=== PATIENT | male | born 1975 | race Caucasian/White ===

== ENCOUNTER 2016-09-27 01:52 | Emergency (ER) | payer MEDICARE ==
--- NOTE | 2016-09-27 02:13 | ERPHSYRPT ---
- History of Present Illness Time Seen by Provider: 09/27/16 02:00 Source: patient Exam Limitations: no limitations Patient Subjective Stated Complaint: PT STATES HE IS HAVING WEAKNESS AND PAIN IN HIS LEGS AND STATES HE THINKS HES DEHYDRATED. DENIES BEING SICK RECENTLY, DENIES FEVER. Triage Nursing Assessment: PT ALERT AND ORIENTED, ANSWERS QUESTIONS APPROP. PT AMBULATORY WITH STEADY GAIIT NOTED. RESPIRATIONS NONLABORED WITH LUNGS CTA. SKIN NORMAL FOR RACE, DRY, WARM. MULT SCABS TO LOWER LEGS. Physician History: Pt. has H/O IDDM with neuropathy. He has multiple non-infected abrasions of his gordy [place] [facility] He reports vomiting x 2 today. Timing/Duration: day(s) (2) Severity: moderate Modifying Factors: Improves With: movement Associated Symptoms: vomiting, malaise, weakness, other (neuropathy of bilLE) Allergies/Adverse Reactions: Shellfish *RETIRED-09/25/12 [Shellfish] Allergy (Severe, Verified 09/27/16 02:05 ) Hives 12/20/15 patient states he IS allergic to shellfish diphenhydramine HCl [From Benadryl] Allergy (Unknown, Verified 09/27/16 02:05) influenza virus vaccine, specific [Influenza Virus Vacc,Specific] Allergy ( Unknown, Verified 09/27/16 02:05) shellfish derived Allergy (Verified 09/27/16 02:05) Home Medications: Duloxetine HCl 30 mg [Cymbalta 30 MG Capsule] 60 mg PO 10/30/12 [ History] Insulin Detemir [Levemir] 10 unit SQ 02/20/14 [History] Insulin Aspart [NovoLOG Insulin] 10 unit SQ 11/05/14 [History] Omeprazole 20 MG [Prilosec 20 mg] 20 mg PO DAILY 12/20/15 [History] Dronabinol [Marinol] 5 mg PO BID 09/27/16 [History] Hx Tetanus, Diphtheria Vaccination/Date Given: Yes (unknown) Hx Influenza Vaccination/Date Given: No Hx Pneumococcal Vaccination/Date Given: No Immunizations Up to Date: Yes - Review of Systems Constitutional: Malaise, Weakness Eyes: No Symptoms Ears, Nose, & Throat: No Symptoms Respiratory: No Symptoms Cardiac: No Symptoms Abdominal/Gastrointestinal: Vomiting Genitourinary Symptoms: No Symptoms Musculoskeletal: Arthralgias Skin: Skin Lesions Psychological: No Symptoms Endocrine: No Symptoms Hematologic/Lymphatic: No Symptoms - Past Medical History Pertinent Past Medical History: Yes Neurological History: Peripheral Neuropathy, Seizures ENT History: No Pertinent History Cardiac History: Other Respiratory History: No Pertinent History Endocrine Medical History: Diabetes Type I Musculoskeletal History: No Pertinent History GI Medical History: Gallbladder Disease History: No Pertinent History Psycho-Social History: Anxiety, Depression Male Reproductive Disorders: No Pertinent History Other Medical History: tachycardia - Past Surgical History Past Surgical History: Yes Neuro Surgical History: No Pertinent History Cardiac: No Pertinent History Respiratory: No Pertinent History Gastrointestinal: Cholecystectomy, Other Genitourinary: No Pertinent History Musculoskeletal: Orthopedic Surgery Male Surgical History: No Pertinent History Other Surgical History: Left Knee surgery. right hand surgery. port placement - Social History Smoking Status: Never smoker How long have you smoked: 15 Exposure to second hand smoke: No Alcohol Use: Socially Drug Use: none Patient Lives Alone: No Significant Family History: diabetes - Nursing Vital Signs Nursing Vital Signs: Initial Vital Signs Temperature 98.0 F Temperature Source Oral Pulse Rate 89 Respiratory Rate 18 Blood Pressure [Right Arm] 95/76 Pain Intensity 8 - Physical Exam General Appearance: moderate distress Eye Exam: eyes nml inspection Ears, Nose, Throat Exam: normal ENT inspection, pharynx normal Neck Exam: normal inspection, non-tender, supple, full range of motion Respiratory Exam: normal breath sounds Cardiovascular Exam: regular rate/rhythm, normal heart sounds, normal peripheral pulses Gastrointestinal/Abdomen Exam: soft, normal bowel sounds Back Exam: normal inspection, normal range of motion Extremity Exam: normal range of motion, pelvis stable, other (scattered abrasions of gordy shins healing), No pedal edema Neurologic Exam: alert, oriented x 3, cooperative, normal mood/affect Skin Exam: normal color, warm, dry, abrasion SpO2 Interpretation: normal SpO2: 98 Oxygen Delivery: Room Air - Course Nursing assessment & vital signs reviewed: Yes EKG Interpreted by Me: RATE, Sinus Rhythm (at 92), NORMAL AXIS, Other (In comparison to ECG of 7, no morphology change, but rate has slowed.) Ordered Tests: Active Orders 24 hr Category Date Time Status Accucheck STAT Care 09/27/16 02:21 Active EKG-ER Only STAT Care 09/27/16 02:21 Active IV Insertion STAT Care 09/27/16 02:21 Active CHEST 1 VIEW (PORTABLE) Stat Exams 09/27/16 02:21 Taken ARTERIAL BLOOD GASES Urgent Lab 09/27/16 02:35 Completed CBC W DIFF Stat Lab 09/27/16 02:57 Completed CMP Stat Lab 09/27/16 02:57 Completed MAGNESIUM Stat Lab 09/27/16 02:57 Completed Medication Summary Discontinued Medications Generic Name Dose Route Start Last Admin Trade Name Caridad PRN Reason Stop Dose Admin Sodium Chloride 1,000 mls @ 999 mls/hr 09/27/16 02:21 09/27/16 02:55 Sodium Chloride 0.9% 1000 Ml IV 09/27/16 03:21 999 mls/hr .Q1H1M STA Administration Sodium Chloride Confirm 09/27/16 02:54 Sodium Chloride 0.9% 1000 Ml Administered 09/27/16 02:55 Dose 1,000 mls @ ud .ROUTE .STK-MED ONE Ketorolac Tromethamine 30 mg 09/27/16 02:25 09/27/16 02:55 Toradol 30 Mg Injection IV 09/27/16 02:26 30 mg STAT ONE Administration Ketorolac Tromethamine Confirm 09/27/16 02:54 Toradol 30 Mg Injection Administered 09/27/16 02:55 Dose 30 mg .ROUTE .STK-MED ONE Ondansetron HCl 4 mg 09/27/16 02:21 09/27/16 02:57 Zofran 4 Mg/2 Ml Vial IV 09/27/16 02:22 4 mg STAT ONE Administration Ondansetron HCl Confirm 09/27/16 02:54 Zofran 4 Mg/2 Ml Vial Administered 09/27/16 02:55 Dose 4 mg .ROUTE .STK-MED ONE Lab/Rad Data: Laboratory Result Diagrams 09/27/16 02:57 09/27/16 02:57 Laboratory Results 09/27/16 09/27/16 09/27/16 Range/Units 02:57 02:57 02:35 WBC 9.4 (4.0-10.5) K/mm3 RBC 3.16 L (4.1-5.6) M/mm3 Hgb 9.8 L (12.5-18.0) gm/dl Hct 29.4 L (42-50) % MCV 93.0 (78-100) fl MCH 31.0 (26-32) pg MCHC 33.3 (32-36) g/dl RDW 13.3 (11.5-14.0) % Plt Count 272 (150-450) K/mm3 MPV 10.1 H (6-9.5) fl Gran % 47.5 (36.0-66.0) % Lymphocytes % 39.3 (24.0-44.0) % Monocytes % 7.2 (0.0-12.0) % Eosinophils % 5.0 (0.00-5.0) % Basophils % 1.0 (0.0-0.4) % Basophils # 0.09 (0-0.4) Puncture Site LEFT BRACHIAL pCO2 42 (35-45) mmHg pO2 78 (75-100) mmHg Base Excess 1.0 (-2.0-2.0) O2 Saturation 95.8 (94-100) g/dF ABG pH 7.40 (7.35-7.45) ABG HCO3 26.0 (22-28) ABG O2 Sat (Measured) 97.6 (95-100) % Uvaldo Test NOT APPLICABLE A-a Gradient 19 a/A Ratio 0.80 Hemoglobin 9.6 Carboxyhemoglobin 1.0 (0.0-6.9) % THgb Methemoglobin 0.8 L (1.4-1.5) % Potassium 4.4 4.3 (3.5-5.1) Temperature 37.0 C POC O2 Flow Rate 21 % Sodium 138 (136-145) mEq/L Chloride 104 (98-107) mEq/L Carbon Dioxide 26.0 (21-32) mEq/L Anion Gap 12.8 (5-15) MEQ/L BUN 32 H (9-20) mg/dL Creatinine 2.29 H (0.55-1.30) mg/dl Estimated GFR 33 ML/MIN Glucose 229 H (70-110) MG/DL Calcium 8.2 L (8.5-10.1) mg/dL Magnesium 1.9 (1.8-2.4) mg/dL Total Bilirubin 0.2 (0.2-1.0) mg/dL AST 24 (15-37) U/L ALT 16 (12-78) U/L Alkaline Phosphatase 69 (46-116) U/L Serum Total Protein 5.6 L (6.4-8.2) gm/dL Albumin 2.6 L (3.4-5.0) g/dL - Progress Progress: pain not gone completely Will see patient in: other (PCP 1-2 days) Counseled pt/family regarding: lab results, diagnosis, need for follow-up - Departure Time of Disposition: 03:30 Departure Disposition: Home Clinical Impression: Hyperglycemia due to type 1 diabetes mellitus, IDDM (insulin dependent diabetes mellitus) Diabetic neuropathy Qualifiers: Diabetes mellitus type: type 1 Diabetes mellitus complication detail: diabetic polyneuropathy Qualified Code(s): E10.42 - Type 1 diabetes mellitus with diabetic polyneuropathy Condition: Stable Critical Care Time: Yes Critical Care Time(excluding separately billable procedures): 75-104 minutes
[2016-09-27] MEDS ORDERED: Zofran 4 MG/2 ML VIAL IV ONE (02:21)
[2016-09-27] MEDS ORDERED: Sodium Chloride 0.9% 1000 ML 1,000 ML IV STA (02:21)
[2016-09-27] MEDS ORDERED: TORAdol 30 mg Injection IV ONE (02:25)
[2016-09-27 02:41] LABS: A-aADO2 19; ARTERIAL BLD GAS O2 SATURATION 97.6 % (95-100); ARTERIAL BLOOD GAS FIO2 21 %; ARTERIAL BLOOD GAS PO2 78 mmHg (75-100)
[2016-09-27] MEDS ORDERED: Sodium Chloride 0.9% 1000 ML 1,000 ML ONE (02:54)
[2016-09-27] MEDS ORDERED: TORAdol 30 mg Injection ONE (02:54)
[2016-09-27] MEDS ORDERED: Zofran 4 MG/2 ML VIAL ONE (02:54)
[2016-09-27 03:01] LABS: Granulocytes % 47.5 % (36.0-66.0); Lymphocytes % 39.3 % (24.0-44.0); Mean Platelet Volume 10.1 fl (6-9.5); Monocytes % 7.2 % (0.0-12.0); Platelet Count 272 K/mm3 (150-450); Red Blood Count 3.16 M/mm3 (4.1-5.6); Red Cell Distribution Width 13.3 % (11.5-14.0); White Blood Count 9.4 K/mm3 (4.0-10.5)
[2016-09-27 03:23] LABS: ALBUMIN 2.6 g/dL (3.4-5.0); ANION GAP 12.8 MEQ/L (5-15); BILIRUBIN,TOTAL 0.2 mg/dL (0.2-1.0); MAGNESIUM 1.9 mg/dL (1.8-2.4); Potassium 4.4 mEq/L (3.5-5.1); Total Protein 5.6 gm/dL (6.4-8.2)
[2016-09-27 05:04] VITALS: BP 151/79; PULSE 94; O2SAT 98
--- NOTE | 2016-09-27 09:38 | XRAY ---
Indication: Vomiting and dehydration. Comparison: December 20, 2015. Portable chest again demonstrates normal heart, lungs, and bony thorax with a left-sided Port-A-Cath.
== END 2016-09-27 04:55 | disposition home or self-care (01) ==
LOC: ED 01:52
DX: E10.42 Type 1 diabetes mellitus with diabetic polyneuropathy (principal); E10.65 Type 1 diabetes mellitus with hyperglycemia
CPT/HCPCS: 36000; 36415; 36600; 71010; 80053; 82375; 82803; 82962; 83735; 85025; 93005; 96374; 96375; 99284; J1642; J1885; J2405

== ENCOUNTER 2016-10-29 01:13 | Emergency (ER) | payer MEDICARE ==
--- NOTE | 2016-10-29 01:43 | ERPHSYRPT ---
- History of Present Illness Time Seen by Provider: 10/29/16 01:20 Source: patient Exam Limitations: no limitations Patient Subjective Stated Complaint: states that he has had trouble with swelling and increased neuropathic pain in the lower legs for 2 days - states that the pain is so bad that he wants to cut his legs off Triage Nursing Assessment: ambulatory to treatment area - shuffling gait - moves all extremities with mild but equal weakness. alert/oriented - grimmacing affect. skin sallow/warm/dry - no rash/injury - ankle edema +1. resps non-labored - shallow Physician History: FOR THE PAST 2 DAYS PT HAS HAD PAIN AND SWELLING IN HIS LEGS WITH DIAPHORESIS AND CHILLS. PT DENIES CHEST PAIN, SHORTNESS OF AIR, FEVER, VOMITING. Allergies/Adverse Reactions: Shellfish *RETIRED-09/25/12 [Shellfish] Allergy (Severe, Verified 09/27/16 02:05 ) Hives 12/20/15 patient states he IS allergic to shellfish diphenhydramine HCl [From Benadryl] Allergy (Unknown, Verified 09/27/16 02:05) influenza virus vaccine, specific [Influenza Virus Vacc,Specific] Allergy ( Unknown, Verified 09/27/16 02:05) ketorolac [From Toradol] Allergy (Verified 10/29/16 01:18) shellfish derived Allergy (Verified 09/27/16 02:05) Home Medications: Duloxetine HCl 30 mg [Cymbalta 30 MG Capsule] 60 mg PO HS 10/30/12 [ History] Insulin Detemir [Levemir] 10 unit SQ 02/20/14 [History] Insulin Aspart [NovoLOG Insulin] 10 unit SQ 11/05/14 [History] Omeprazole 20 MG [Prilosec 20 mg] 20 mg PO DAILY 12/20/15 [History] Dronabinol [Marinol] 5 mg PO BID 09/27/16 [History] Hx Tetanus, Diphtheria Vaccination/Date Given: Yes Hx Influenza Vaccination/Date Given: No Hx Pneumococcal Vaccination/Date Given: No Immunizations Up to Date: Yes - Review of Systems Constitutional: Chills, No Fever Respiratory: No Dyspnea Cardiac: No Chest Pain Abdominal/Gastrointestinal: No Abdominal Pain, No Nausea, No Vomiting Musculoskeletal: Other (LEG SWELLING AND PAIN) Endocrine: Excessive Sweating All Other Systems: Reviewed and Negative - Past Medical History Pertinent Past Medical History: Yes Neurological History: Peripheral Neuropathy, Seizures ENT History: No Pertinent History Cardiac History: Other Respiratory History: No Pertinent History Endocrine Medical History: Diabetes Type I Musculoskeletal History: No Pertinent History GI Medical History: Gallbladder Disease History: No Pertinent History Psycho-Social History: Anxiety, Depression Male Reproductive Disorders: No Pertinent History Other Medical History: tachycardia - Past Surgical History Past Surgical History: Yes Neuro Surgical History: No Pertinent History Cardiac: No Pertinent History Respiratory: No Pertinent History Gastrointestinal: Cholecystectomy, Other Genitourinary: No Pertinent History Musculoskeletal: Orthopedic Surgery Male Surgical History: No Pertinent History Other Surgical History: Left Knee surgery. right hand surgery. port placement - Social History Smoking Status: Never smoker How long have you smoked: 15 Exposure to second hand smoke: No Alcohol Use: Socially Drug Use: none Patient Lives Alone: No Significant Family History: diabetes - Nursing Vital Signs Nursing Vital Signs: Initial Vital Signs Temperature 98.5 F Temperature Source Oral Pulse Rate 88 Respiratory Rate 18 Blood Pressure [Left Arm] 176/87 Pain Intensity 10 - Physical Exam General Appearance: alert Eye Exam: PERRL/EOMI Ears, Nose, Throat Exam: pharynx normal Neck Exam: normal inspection Respiratory Exam: lungs clear Cardiovascular Exam: normal heart sounds Gastrointestinal/Abdomen Exam: soft, normal bowel sounds Back Exam: normal inspection Extremity Exam: other (+1 EDEMA OF LEGS/FEET) Neurologic Exam: alert, cooperative Skin Exam: warm, dry SpO2 Interpretation: normal SpO2: 99 Oxygen Delivery: Room Air - Course Nursing assessment & vital signs reviewed: Yes Ordered Tests: Active Orders 24 hr Category Date Time Status IV Insertion STAT Care 10/29/16 01:58 Active AMYLASE Stat Lab 10/29/16 01:55 Completed CBC W DIFF Stat Lab 10/29/16 01:55 Completed CMP Stat Lab 10/29/16 01:55 Completed ETHOH [Ethyl Alcohol,Urine] Stat Lab 10/29/16 01:33 Ordered LIPASE Stat Lab 10/29/16 01:55 Completed MAG [MAGNESIUM] Stat Lab 10/29/16 01:55 Completed UA W/RFX UR CULTURE Stat Lab 10/29/16 01:32 Ordered Urine Triage Profile Stat Lab 10/29/16 01:32 Ordered Medication Summary Discontinued Medications Generic Name Dose Route Start Last Admin Trade Name Freq PRN Reason Stop Dose Admin Hydrocodone Bitart/Acetaminophen 2 tab 10/29/16 01:46 10/29/16 02:03 [place] 5/325 Mg PO 10/29/16 01:47 2 tab STAT ONE Administration Hydrocodone Bitart/Acetaminophen Confirm 10/29/16 02:00 [place] 5/325 Mg Administered 10/29/16 02:01 Dose 2 tab .ROUTE .STK-MED ONE Lab/Rad Data: Laboratory Result Diagrams 10/29/16 01:55 10/29/16 01:55 Laboratory Results 10/29/16 10/29/16 10/29/16 Range/Units 01:55 01:55 01:55 WBC 8.4 (4.0-10.5) K/mm3 RBC 2.84 L (4.1-5.6) M/mm3 Hgb 8.6 L (12.5-18.0) gm/dl Hct 26.7 L (42-50) % MCV 94.0 (78-100) fl MCH 30.2 (26-32) pg MCHC 32.2 (32-36) g/dl RDW 13.3 (11.5-14.0) % Plt Count 282 (150-450) K/mm3 MPV 10.1 H (6-9.5) fl Gran % 47.0 (36.0-66.0) % Lymphocytes % 39.1 (24.0-44.0) % Monocytes % 7.7 (0.0-12.0) % Eosinophils % 5.5 H (0.00-5.0) % Basophils % 0.7 (0.0-0.4) % Basophils # 0.06 (0-0.4) Sodium 138 (136-145) mEq/L Potassium 3.9 (3.5-5.1) mEq/L Chloride 103 (98-107) mEq/L Carbon Dioxide 27.2 (21-32) mEq/L Anion Gap 11.6 (5-15) MEQ/L BUN 34 H (9-20) mg/dL Creatinine 1.83 H (0.55-1.30) mg/dl Estimated GFR 43 ML/MIN Glucose 383 H (70-110) MG/DL Calcium 8.6 (8.5-10.1) mg/dL Magnesium 2.0 (1.8-2.4) mg/dL Total Bilirubin 0.10 L (0.2-1.0) mg/dL AST 43 H (15-37) U/L ALT 24 (12-78) U/L Alkaline Phosphatase 52 (46-116) U/L Serum Total Protein 5.1 L (6.4-8.2) gm/dL Albumin 2.0 L (3.4-5.0) g/dL Amylase 45 (25-115) U/L Lipase 114 (73-393) U/L - Departure Time of Disposition: 03:37 Departure Disposition: Home Clinical Impression: ANEMIA, DM, CKD Condition: Fair Critical Care Time: No Instructions: Chronic Pain -- Adult Additional Instructions: FOLLOW UP WITH PRIVATE DOCTOR TOMORROW.
[2016-10-29] MEDS ORDERED: NORCO 5/325 MG PO ONE (01:46)
[2016-10-29 02:00] LABS: BASOPHIL % 0.7 % (0.0-0.4); Eosinophil % 5.5 % (0.00-5.0); Lymphocytes % 39.1 % (24.0-44.0); Mean Platelet Volume 10.1 fl (6-9.5); Monocytes % 7.7 % (0.0-12.0); Platelet Count 282 K/mm3 (150-450); Red Blood Count 2.84 M/mm3 (4.1-5.6); Red Cell Distribution Width 13.3 % (11.5-14.0); White Blood Count 8.4 K/mm3 (4.0-10.5)
[2016-10-29] MEDS ORDERED: NORCO 5/325 MG ONE (02:00)
[2016-10-29 02:38] LABS: Mean Corpuscular Hemoglobin 30.2 pg (26-32)
[2016-10-29 02:48] LABS: ANION GAP 11.6 MEQ/L (5-15); BILIRUBIN,TOTAL 0.1 mg/dL (0.2-1.0); Carbon Dioxide 27.2 mEq/L (21-32); Potassium 3.9 mEq/L (3.5-5.1); Total Protein 5.1 gm/dL (6.4-8.2)
[2016-10-29 05:06] VITALS: O2SAT 98
[2016-10-29 07:03] VITALS: BP 177/87; PULSE 92
== END 2016-10-29 08:04 | disposition home or self-care (01) ==
LOC: ED 01:13
DX: D64.9 Anemia, unspecified (principal); E11.9 Type 2 diabetes mellitus without complications; N18.9 Chronic kidney disease, unspecified
CPT/HCPCS: 36000; 36415; 80053; 82150; 82962; 83690; 83735; 85025; 99284; J1642; A9270-GY

== ENCOUNTER 2016-12-09 04:10 | Inpatient (IN) | payer MEDICARE ==
[2016-12-09] MEDS ORDERED: NOVOLIN R INSULIN (FOR DRIPS)** 100 UNITS in Sodium Chloride 0.9% 100 ML IVPB 100 ML IV SCH (04:15)
[2016-12-09] MEDS ORDERED: Sodium Chloride 0.9% 100 ML IVPB 100 ML IV ONE (04:33)
[2016-12-09] MEDS ORDERED: NovoLIN R ONE ×2 (04:33→05:21)
[2016-12-09] MEDS ORDERED: Sodium Chloride 0.9% 1000 ML 1,000 ML ONE ×3 (04:38→05:33)
[2016-12-09 04:45] LABS: BASOPHIL % 0.9 % (0.0-0.4); Eosinophil % 4.6 % (0.00-5.0); Granulocytes % 47.8 % (36.0-66.0); Lymphocytes % 39.1 % (24.0-44.0); Mean Cell Volume 93.5 fl (78-100); Mean Platelet Volume 10.6 fl (6-9.5); Monocytes % 7.6 % (0.0-12.0); Platelet Count 237 K/mm3 (150-450); Red Blood Count 2.91 M/mm3 (4.1-5.6); Red Cell Distribution Width 12.5 % (11.5-14.0)
[2016-12-09 04:46] LABS: Lactic Acid 0.6 (0.4-2.0)
[2016-12-09 04:47] LABS: Mean Corpuscular Hemoglobin 30.5 pg (26-32)
--- NOTE | 2016-12-09 04:48 | ERPHSYRPT ---
- History of Present Illness Time Seen by Provider: 12/09/16 04:43 Source: patient, EMS Exam Limitations: no limitations Patient Subjective Stated Complaint: REPORTS THAT HE HAS HAD TROUBLE WITH HIS SUGAR BEING HIGH AT HOME - STATES THAT HE WANTS TO BE ADMITTED TO THE [facility] AND HAS HAD A LOT OF STRESS AT HOME - STATES THAT HE HAS ANXIETY AND TAKES XANAX AND VICODIN 10MG QID - STATES THAT HE HAS BAD NEUROPATHY Triage Nursing Assessment: LIFTED TO CART PER EMS PERSONNEL - MOVES ALL EXTREMITIES WITH EQUAL WEAKNESS ET MILD LETHARGY NOTED. RESPS EASY - NON- LABORED. ALERT/ORIENTED - FLAT AFFECT. SKIN SALLOW/WARM/DRY - MULTIPLE WOUNDS /ECCHYMOSES OF THE EXTREMITIES IN VARIOUS STAGES OF HEALING Physician History: 41-year-old male with history of type 1 insulin-dependent diabetes mellitus with diabetic neuropathy has a multiple ER visits as well as hospital admission for diabetes related problems. Patient was just recently discharged from the hospital and at that time. He was advised to be admitted at long-term, but patient opted to go home. He started having abdominal pain, nausea, vomiting, and high blood sugar level. He has not been able to eat anything for last 2 days. At the last his symptoms got worse and he came to the emergency room. Timing/Duration: yesterday Severity: severe Associated Symptoms: nausea, vomiting, abdominal pain, loss of appetite, weakness Allergies/Adverse Reactions: Shellfish *RETIRED-09/25/12 [Shellfish] Allergy (Severe, Verified 09/27/16 02:05 ) Hives 12/20/15 patient states he IS allergic to shellfish diphenhydramine HCl [From Benadryl] Allergy (Unknown, Verified 09/27/16 02:05) influenza virus vaccine, specific [Influenza Virus Vacc,Specific] Allergy ( Unknown, Verified 09/27/16 02:05) ketorolac [From Toradol] Allergy (Verified 10/29/16 01:18) shellfish derived Allergy (Verified 09/27/16 02:05) Home Medications: Duloxetine HCl 30 mg [Cymbalta 30 MG Capsule] 60 mg PO HS 10/30/12 [ History] Insulin Detemir [Levemir] 10 unit SQ HS 02/20/14 [History] Insulin Aspart [NovoLOG Insulin] 10 unit SQ UD 11/05/14 [History] Omeprazole 20 MG [Prilosec 20 mg] 20 mg PO DAILY 12/20/15 [History] Dronabinol [Marinol] 5 mg PO BID 09/27/16 [History] Hx Tetanus, Diphtheria Vaccination/Date Given: No Hx Influenza Vaccination/Date Given: Yes Hx Pneumococcal Vaccination/Date Given: Yes Immunizations Up to Date: Yes - Review of Systems Constitutional: Fatigue, Lethargy, Malaise Eyes: No Symptoms Ears, Nose, & Throat: No Symptoms Respiratory: No Cough, No Dyspnea Cardiac: No Chest Pain, No Edema, No Syncope Abdominal/Gastrointestinal: Abdominal Pain, Nausea, Vomiting, No Diarrhea Genitourinary Symptoms: No Dysuria Musculoskeletal: No Back Pain, No Neck Pain Skin: No Rash Neurological: No Dizziness, No Focal Weakness, No Sensory Changes Psychological: No Symptoms Endocrine: No Symptoms All Other Systems: Reviewed and Negative - Past Medical History Pertinent Past Medical History: Yes Neurological History: Peripheral Neuropathy, Seizures ENT History: No Pertinent History Cardiac History: Other Respiratory History: No Pertinent History Endocrine Medical History: Diabetes Type I Musculoskeletal History: No Pertinent History GI Medical History: Gallbladder Disease History: No Pertinent History Psycho-Social History: Anxiety, Depression Male Reproductive Disorders: No Pertinent History Other Medical History: tachycardia - Past Surgical History Past Surgical History: Yes Neuro Surgical History: No Pertinent History Cardiac: No Pertinent History Respiratory: No Pertinent History Gastrointestinal: Cholecystectomy, Other Genitourinary: No Pertinent History Musculoskeletal: Orthopedic Surgery Male Surgical History: No Pertinent History Other Surgical History: Left Knee surgery. right hand surgery. port placement - Social History Smoking Status: Never smoker How long have you smoked: 15 Exposure to second hand smoke: No Alcohol Use: Socially Drug Use: none Patient Lives Alone: No Significant Family History: diabetes - Nursing Vital Signs Nursing Vital Signs: Initial Vital Signs Temperature 98.8 F Temperature Source Oral Pulse Rate 90 Respiratory Rate 16 Blood Pressure [Right Arm] 146/86 Pain Intensity 8 - Physical Exam General Appearance: no apparent distress, alert Eye Exam: PERRL/EOMI, eyes nml inspection Ears, Nose, Throat Exam: normal ENT inspection, TMs normal, pharynx normal, dry mucous membranes Neck Exam: normal inspection, non-tender, supple, full range of motion Respiratory Exam: normal breath sounds, lungs clear, No respiratory distress Cardiovascular Exam: regular rate/rhythm, normal heart sounds, normal peripheral pulses Gastrointestinal/Abdomen Exam: soft, normal bowel sounds, No tenderness, No mass Back Exam: normal inspection, normal range of motion, No CVA tenderness, No vertebral tenderness Extremity Exam: normal inspection, normal range of motion, pelvis stable Neurologic Exam: alert, oriented x 3, cooperative, normal mood/affect, nml cerebellar function, nml station & gait, sensation nml, No motor deficits Skin Exam: normal color, warm, dry, No rash Lymphatic Exam: No adenopathy SpO2: 97 Oxygen Delivery: Room Air - Course Nursing assessment & vital signs reviewed: Yes Ordered Tests: Active Orders 24 hr Category Date Time Status Accucheck STAT Care 12/09/16 04:12 Active 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 12/09/16 04:12 Active IV Insertion STAT Care 12/09/16 04:12 Active IV Insertion-2nd Peripheral STAT Care 12/09/16 04:50 Active ABG [ARTERIAL BLOOD GASES] Stat Lab 12/09/16 05:32 Ordered CBC W DIFF Stat Lab 12/09/16 04:35 Completed CMP Stat Lab 12/09/16 04:35 Completed Glucose,Critical Care Urgent Lab 12/09/16 04:35 Completed Lactic Acid Urgent Lab 12/09/16 04:35 Completed MAGNESIUM Stat Lab 12/09/16 04:35 Completed UA W/RFX UR CULTURE Stat Lab 12/09/16 04:12 Ordered Transfer Order Routine Transfer 12/09/16 05:32 Ordered Medication Summary Generic Name Dose Route Start Last Admin Trade Name Freq PRN Reason Stop Dose Admin Insulin Human Regular 100 101 mls @ 2.02 mls/hr 12/09/16 04:15 12/09/16 04:46 units/ Sodium Chloride IV 01/08/17 04:14 2 units/hr .Q24H NITO 2.02 mls/hr 2 UNITS/HR Administration Sodium Chloride 3,000 mls @ 999 mls/hr 12/09/16 04:12 12/09/16 04:38 Sodium Chloride 0.9% 1000 Ml IV 12/09/16 07:12 999 mls/hr .Q3H1M STA Administration Discontinued Medications Generic Name Dose Route Start Last Admin Trade Name Freq PRN Reason Stop Dose Admin Sodium Chloride Confirm 12/09/16 04:33 Sodium Chloride 0.9% 100 Ml Ivpb Administered 12/09/16 04:34 Dose 100 mls @ ud IV .STK-MED ONE Sodium Chloride Confirm 12/09/16 04:38 Sodium Chloride 0.9% 1000 Ml Administered 12/09/16 04:39 Dose 1,000 mls @ ud .ROUTE .STK-MED ONE Sodium Chloride Confirm 12/09/16 04:47 Sodium Chloride 0.9% 1000 Ml Administered 12/09/16 04:48 Dose 1,000 mls @ ud .ROUTE .STK-MED ONE Sodium Chloride Confirm 12/09/16 05:33 Sodium Chloride 0.9% 1000 Ml Administered 12/09/16 05:34 Dose 1,000 mls @ ud .ROUTE .STK-MED ONE Insulin Human Regular Confirm 12/09/16 04:33 Novolin R Administered 12/09/16 04:34 Dose 100 unit .ROUTE .STK-MED ONE Insulin Human Regular 10 unit 12/09/16 05:18 12/09/16 05:23 Novolin R IV 12/09/16 05:19 10 unit STAT ONE Administration Insulin Human Regular Confirm 12/09/16 05:21 Novolin R Administered 12/09/16 05:22 Dose 10 unit .ROUTE .STK-MED ONE Lab/Rad Data: Laboratory Result Diagrams 12/09/16 04:35 12/09/16 04:35 Laboratory Results 12/09/16 12/09/16 12/09/16 Range/Units 04:35 04:35 04:35 WBC 7.0 (4.0-10.5) K/mm3 RBC 2.91 L (4.1-5.6) M/mm3 Hgb 8.9 L (12.5-18.0) gm/dl Hct 27.2 L (42-50) % MCV 93.5 (78-100) fl MCH 30.5 (26-32) pg MCHC 32.7 (32-36) g/dl RDW 12.5 (11.5-14.0) % Plt Count 237 (150-450) K/mm3 MPV 10.6 H (6-9.5) fl Gran % 47.8 (36.0-66.0) % Lymphocytes % 39.1 (24.0-44.0) % Monocytes % 7.6 (0.0-12.0) % Eosinophils % 4.6 (0.00-5.0) % Basophils % 0.9 (0.0-0.4) % Basophils # 0.06 (0-0.4) Glucose 381 H 379 H (70-110) Sodium 137 (136-145) mEq/L Potassium 4.5 (3.5-5.1) mEq/L Chloride 103 (98-107) mEq/L Carbon Dioxide 23.0 (21-32) mEq/L Anion Gap 15.6 H (5-15) MEQ/L BUN 29 H (9-20) mg/dL Creatinine 1.96 H (0.55-1.30) mg/dl Estimated GFR 40 ML/MIN Lactic Acid 0.6 (0.4-2.0) Calcium 8.1 L (8.5-10.1) mg/dL Magnesium 1.7 L (1.8-2.4) mg/dL Total Bilirubin 0.20 (0.2-1.0) mg/dL AST 21 (15-37) U/L ALT 16 (12-78) U/L Alkaline Phosphatase 65 (46-116) U/L Serum Total Protein 5.0 L (6.4-8.2) gm/dL Albumin 1.7 L (3.4-5.0) g/dL - Progress Progress: unchanged Discussed with Dr.: Jere Pro Will see patient in: hospital (observation) Counseled pt/family regarding: lab results, diagnosis, need for follow-up - Departure Time of Disposition: 05:31 Departure Disposition: In-patient Admission Clinical Impression: IDDM (insulin dependent diabetes mellitus) Uncontrolled diabetes mellitus Qualifiers: Diabetes mellitus type: type 1 Diabetes mellitus complication status: with hyperglycemia Qualified Code(s): E10.65 - Type 1 diabetes mellitus with hyperglycemia Nausea & vomiting Qualifiers: Vomiting type: unspecified Vomiting Intractability: intractable Qualified Code( s): R11.2 - Nausea with vomiting, unspecified Diabetic ketoacidosis Qualifiers: Diabetes mellitus type: type 1 Diabetes mellitus complication detail: without coma Qualified Code(s): E10.10 - Type 1 diabetes mellitus with ketoacidosis without coma Condition: Fair Critical Care Time: Yes Critical Care Time(excluding separately billable procedures): 30-74 minutes Referrals: AGUSTIN PRO [Primary Care Provider] -
[2016-12-09 05:10] LABS: ALBUMIN 1.7 g/dL (3.4-5.0); ANION GAP 15.6 MEQ/L (5-15); BILIRUBIN,TOTAL 0.2 mg/dL (0.2-1.0); MAGNESIUM 1.7 mg/dL (1.8-2.4); Potassium 4.5 mEq/L (3.5-5.1)
[2016-12-09] MEDS ORDERED: NovoLIN R IV ONE (05:18)
[2016-12-09 05:52] LABS: A-aADO2 26; ALLEN TEST OK? YES; ARTERIAL BLD GAS O2 SATURATION 95.5 % (95-100); ARTERIAL BLOOD GAS BASE EXCESS -6.2 (-2.0-2.0); ARTERIAL BLOOD GAS FIO2 21 %; ARTERIAL BLOOD GAS PO2 75 mmHg (75-100); ARTERIAL BLOOD GAS pH 7.31 (7.35-7.45)
[2016-12-09] MEDS ORDERED: NOVOLIN R INSULIN (FOR DRIPS)** 100 UNITS in Sodium Chloride 0.9% 100 ML IVPB 100 ML IV PRN (06:29)
[2016-12-09] MEDS ORDERED: Sodium Chloride 0.9% W/ 20 mEq KCl/LITER 1,000 ML IV SCH (06:29)
[2016-12-09 06:51] LABS: Collection Type CCMS; Leukocyte Esterase NEGATIVE (NEGATIVE)
[2016-12-09 06:52] LABS: Bilirubin NEGATIVE (NEGATIVE); Blood 250 Ery/ul (0-5); COMPLETE URINE MICROSCOPIC? YES; Glucose 1000 mg/dL (NEGATIVE)
[2016-12-09 07:09] LABS: ADD URINE CULTURE? NO (NO); Epithelial Cells RARE /HPF (FEW); WBC 0-2 /HPF (0-5)
[2016-12-09 07:31] VITALS: O2SAT 98
[2016-12-09] MEDS ORDERED: NORCO 5/325 MG PO PRN (07:41)
--- NOTE | 2016-12-09 07:50 | PCM.HP ---
History of Present Illness - Chief Complaint Chief Complaint: DKA Date: 12/09/16 History of Present Illness: is a 41 year old male. with longstanding uncontrolled type [address] Pro. He reports he is nearly blind now and is unable to draw up his insulin any longer and can't give himself shots. He states he has severe neuropathic pain in his feets bilateral and numbness in his hands. The pain causes weakness in the legs and he walks with a walker and is very weak. he states he has difficulty using his hands and does not have help at home. He reports not being able to give his insulin and not eating or drinking due to weakness this has been progressively worsening for years and worse over the last few months. His pain is much worse now. He was on hydrocodone in the past but Dr. Pro took him off this recently and his last Rx was on 11/03/16 it appears. He had uds done on 11/20/16 that the screen was negative including for opiates and benzo. he feels weak and tired and aching pain all over. - Review of Systems Constitutional: Chills, Fatigue, Lethargy, Malaise, No Fever Eyes: No Symptoms, Vision Changes Ears, Nose, & Throat: No Symptoms Respiratory: No Cough, No Short Of Breath Cardiac: No Chest Pain, No Edema, No Syncope Abdominal/Gastrointestinal: Abdominal Pain, Nausea, Vomiting, No Diarrhea Genitourinary Symptoms: No Dysuria Musculoskeletal: Arthralgias, Back Pain, Joint Pain, Myalgias, No Neck Pain Skin: No Rash Neurological: Gait Changes, Irritability, Parasthesia, Sensory Changes, No Dizziness, No Focal Weakness Psychological: No Symptoms, No Alcohol Abuse, No Drug Abuse Endocrine: No Symptoms Hematologic/Lymphatic: No Symptoms Immunological/Allergic: No Symptoms Medications & Allergies Home Medications: Home Medication List Duloxetine HCl 30 mg [Cymbalta 30 MG Capsule] 60 mg PO HS 10/30/12 [ History Confirmed 10/29/16] Insulin Detemir [Levemir] 10 unit SQ HS 02/20/14 [History Confirmed 10/29/16] Insulin Aspart [NovoLOG Insulin] 10 unit SQ UD 11/05/14 [History Confirmed 10/29/16] Omeprazole 20 MG [Prilosec 20 mg] 20 mg PO DAILY 12/20/15 [History Confirmed ] Alprazolam 1 mg [Xanax 1 mg] 1 mg PO QID PRN PRN #0 tablet 12/24/15 [Rx Confirmed 10/29/16] Hydrocodone/APAP 10/325 mg [Stella 10/325 MG Tablet] 1 tab PO Q4-6HPRN PRN #0 tablet 12/24/15 [Rx Confirmed 10/29/16] Dronabinol [Marinol] 5 mg PO BID 09/27/16 [History Confirmed 10/29/16] Allergies/Adverse Reactions: Allergies Allergy/AdvReac Type Severity Reaction Status Date / Time Shellfish *RETIRED-09/25/12 Allergy Severe Hives Verified 12/09/16 06:32 [Shellfish] diphenhydramine HCl Allergy Unknown Verified 12/09/16 06:32 [From Benadryl] influenza virus vaccine, Allergy Unknown Verified 12/09/16 06:32 specific [Influenza Virus Vacc,Specific] ketorolac [From Toradol] Allergy Verified 12/09/16 06:32 shellfish derived Allergy Verified 12/09/16 06:32 - Past Medical History Past Medical History: Yes Neurological History: No Pertinent History ENT History: Other Cardiac History: Other Respiratory History: No Pertinent History Endocrine Medical History: Diabetes Type I Musculoskelatal History: No Pertinent History GI Medical History: No Pertinent History History: Renal Disease Pyscho-Social History: Anxiety, Depression Male Reproductive Disorders: No Pertinent History Comment: Vision loss from DM, neuropathy, cardiac arrest. - Past Surgical History Past Surgical History: Yes Neuro Surgical History: No Pertinent History Cardiac History: No Pertinent History Respiratory Surgery: No Pertinent History GI Surgical History: No Pertinent History Genitourinary Surgical Hx: No Pertinent History Musculskeletal Surgical Hx: No Pertinent History Male Surgical History: No Pertinent History Other Surgical History: Left Knee surgery. right hand surgery. port placement - Social History Smoking Status: Former smoker How long have you smoked: 15 Exposure to second hand smoke: No Alcohol: None Drug Use: none Significant Family History: diabetes - Physical Exam Vital Signs: Vital Signs - 24 hr Temp Pulse Resp BP Pulse Ox 12/09/16 06:43 97.6 F 94 H 16 176/112 98 07/08/17 05:40 97 12/09/16 05:18 90 16 146/86 16 L 12/09/16 04:14 98.8 F 92 H 14 155/96 97 General Appearance: no apparent distress, alert Neurologic Exam: alert, oriented x 3, cooperative, normal mood/affect, nml cerebellar function, No sensation nml, No motor deficits Eye Exam: pale conjunctivae, No scleral icterus Ears, Nose, Throat Exam: normal ENT inspection, moist mucous membranes, dry mucous membranes Neck Exam: normal inspection, non-tender, supple, full range of motion Respiratory Exam: normal breath sounds, lungs clear, No respiratory distress Cardiovascular Exam: regular rate/rhythm, normal heart sounds, normal peripheral pulses Gastrointestinal/Abdomen Exam: soft, normal bowel sounds, No tenderness, No mass Back Exam: normal inspection, normal range of motion, No CVA tenderness, No vertebral tenderness Extremity Exam: normal inspection, normal range of motion, pelvis stable Skin Exam: normal color, warm, dry, No rash Lymphatic Exam: No adenopathy Assessment/Plan (1) Diabetic ketoacidosis Current Visit: Yes Status: Acute Qualifiers: Diabetes mellitus type: type 1 Diabetes mellitus complication detail: without coma Qualified Code(s): E10.10 - Type 1 diabetes mellitus with ketoacidosis without coma Assessment & Plan: mild currently secondary to not taking his insulin at home due to weakness and inability to see the syringes to draw up the insulin. on insulin drip received fluid bolus X4 in ED recheck vbg and bmp in 4 hours has k running wean drip to home insulin when no vomiting and gap closed (mild gap now) and acidosis resolved start statin and aspirin daily continue cymbalta for neuropathy and start gabapentin Code(s): E13.10 - OTH DIABETES MELLITUS WITH KETOACIDOSIS WITHOUT COMA (2) Anemia Current Visit: No Status: Chronic Code(s): D64.9 - ANEMIA, UNSPECIFIED (3) Acute kidney injury Current Visit: Yes Status: Acute Code(s): N17.9 - ACUTE KIDNEY FAILURE, UNSPECIFIED (4) CKD (chronic kidney disease) Current Visit: Yes Status: Chronic Code(s): N18.9 - CHRONIC KIDNEY DISEASE, UNSPECIFIED (5) Peripheral neuropathy Current Visit: No Status: Acute Code(s): G62.9 - POLYNEUROPATHY, UNSPECIFIED (6) Type 1 diabetes mellitus Current Visit: Yes Status: Chronic Qualifiers: Diabetes mellitus complication status: with kidney complications Diabetes mellitus complication detail: with chronic kidney disease
[2016-12-09] MEDS ORDERED: Zofran 4 MG/2 ML VIAL IV PRN (08:04)
[2016-12-09 08:58] VITALS: BP 127/98; PULSE 92
[2016-12-09] MEDS ORDERED: Catapres 0.1 MG PO SCH (10:00)
[2016-12-09] MEDS ORDERED: ECOTRIN 81 MG PO SCH (10:00)
[2016-12-09] MEDS ORDERED: NEURONTIN 300 MG PO SCH (10:00)
[2016-12-09] MEDS ORDERED: Cymbalta 30 MG Capsule PO SCH (10:00)
[2016-12-09] MEDS ORDERED: Zocor 10MG PO SCH (22:00)
== END 2016-12-09 09:05 | disposition left against medical advice (07) | DRG 638 ==
LOC: ED 04:10 → ICU 06:21
PROVIDERS: ADMIT Family Medicine; ATTEND Family Medicine
DX: E10.10 Type 1 diabetes mellitus with ketoacidosis without coma (principal); N17.9 Acute kidney failure, unspecified; D64.9 Anemia, unspecified; G62.9 Polyneuropathy, unspecified; E10.22 Type 1 diabetes mellitus with diabetic chronic kidney disease; N18.9 Chronic kidney disease, unspecified; F41.8 Other specified anxiety disorders
CPT/HCPCS: 36000; 36415; 36600; 80053; 81000; 82375; 82803; 82947; 82962; 83605; 83735; 85025; 93041; 96360; 96361; 96374; 99285; J1642; J1815; A9270-GY

== ENCOUNTER 2017-01-01 10:29 | Inpatient (IN) | payer MEDICARE ==
[2017-01-01] MEDS ORDERED: PHARMACY DOSING REQUIRED: VANCOMYCIN IV ONE (10:53)
--- NOTE | 2017-01-01 11:19 | XRAY ---
Indication: Great toe diabetic ulcer. Comparison: None 3 nonweightbearing views of the left foot demonstrates forefoot soft tissue swelling, tiny calcaneal bone island, and scattered vascular calcifications. No other bony, articular, or soft tissue abnormalities.
[2017-01-01 12:04] LABS: BASOPHIL % 0.4 % (0.0-0.4); Eosinophil % 2.7 % (0.00-5.0); Granulocytes % 71.6 % (36.0-66.0); Lymphocytes % 16.7 % (24.0-44.0); Mean Cell Volume 90.6 fl (78-100); Mean Platelet Volume 10.4 fl (6-9.5); Monocytes % 8.6 % (0.0-12.0); Platelet Count 350 K/mm3 (150-450); Red Blood Count 3.39 M/mm3 (4.1-5.6); Red Cell Distribution Width 12.2 % (11.5-14.0); White Blood Count 12.1 K/mm3 (4.0-10.5)
[2017-01-01 12:09] LABS: Mean Corpuscular Hemoglobin 29.4 pg (26-32)
[2017-01-01] MEDS ORDERED: VANCOCIN 1 GM VIAL*** 1 GM in Sodium Chloride 0.9% 250 ML 250 ML IV ONE (12:15)
[2017-01-01 12:29] LABS: ALBUMIN 1.8 g/dL (3.4-5.0); ANION GAP 11.4 MEQ/L (5-15); BILIRUBIN,TOTAL 0.1 mg/dL (0.2-1.0); Carbon Dioxide 28.2 mEq/L (21-32); Potassium 3.9 mEq/L (3.5-5.1); Total Protein 6.2 gm/dL (6.4-8.2)
[2017-01-01] MEDS ORDERED: MEDICATION INTERVENTION MC PRN (16:00)
[2017-01-01] MEDS: Protonix 40MG Tablet PO SCH (16:34)
[2017-01-01] MEDS: Lasix 40 MG PO SCH (16:34)
[2017-01-01] MEDS: Catapres 0.1 MG PO SCH (16:34)
[2017-01-01] MEDS: NovoLOG Insulin SQ SCH ×2 (16:35→23:32)
[2017-01-01] MEDS ORDERED: INSULIN LISPRO 8 UNIT SQ SCH (17:00)
[2017-01-01] MEDS: Norco 10/325 MG Tablet PO SCH (17:15)
[2017-01-01] MEDS ORDERED: NON-FORMULARY ITEM (Insulin Lispro 4 UNIT) SQ SCH (22:00)
[2017-01-01] MEDS ORDERED: NON-FORMULARY ITEM (Tapentadol Hcl [Nucynta Er] 200 MG) PO SCH (22:00)
[2017-01-01] MEDS: XANAX 1 MG PO SCH (23:32)
[2017-01-01] MEDS: NovoLOG Insulin SQ PRN (23:32)
[2017-01-02] MEDS ORDERED: MORPHINE SULFATE 4 MG INJ IV ONE (00:03)
[2017-01-02] MEDS: NovoLOG Insulin SQ SCH ×4 (07:35→21:48)
[2017-01-02] MEDS: NovoLOG Insulin SQ PRN ×4 (07:36→21:48)
--- NOTE | 2017-01-02 08:17 | HP ---
CHIEF COMPLAINT: Weakness and diabetes out of control, peripheral neuropathy and chronic pain. HISTORY OF PRESENT ILLNESS: The patient is a 41 year-old white male patient with a long history of diabetes mellitus type 1. He has very poor care. He had seen me in the office yesterday reporting that he felt weak and bad, that he felt like he needed to go into the [facility] as he was unable to care for himself with activities of daily living any longer. He had previously been in rehab approximately a year or so ago and did very well there and eventually was sent back home again but he has very poor insight in care on his diabetes at home. The patient during evaluation was found to have a red foot on the underneath portion of the first metatarsal head. It was found to be somewhat necrotic. The patient was immediately admitted to the hospital for intervention for possible osteomyelitis and cellulitis of the left foot with diabetes. HOME MEDICATIONS: Currently include [place] 10/325 mg PRN for pain, Xanax 1 mg one half tablet b.i.d., Catapres 0.1 mg daily, Lasix 40 mg a day, insulin sliding scale coverage. He takes Nucynta for pain also as he is under the care of a chronic pain center at 200 mg b.i.d. ALLERGIES: SHELLFISH, DIPHENHYDRAMINE, KETOROLAC, INFLUENZA VACCINE. PHYSICAL EXAMINATION: Reveals a thin, white male patient who appears to be slightly disheveled and otherwise in no obvious distress at this time. His vital signs initial admission to the hospital showed temperature 98.4F, pulse 105, respiratory rate 18 and blood pressure 171/94. O2 saturation 97% on room air. HEENT: Normocephalic, atraumatic. Pupils equal round reactive to light. Extraocular movements intact. Oropharynx is slightly dry. NECK: Supple without lymphadenopathy, thyromegaly or JVD. CHEST: Clear to auscultation with good air movement bilaterally. He has a port in the left subclavian area due to his poor venous access. HEART: Regular rate and rhythm without murmurs, rubs or gallops. Slightly tachycardic which he usually is in the 100 to 115 range. ABDOMEN: Scaphoid. No palpable masses are felt. EXTREMITIES: No clubbing, cyanosis or edema. However other than over the left ankle and valerio area is somewhat edematous. He has edema on the dorsum of the foot over the first metatarsal. The underneath side of the foot reveals a callous that appears to have some necrotic tissue there as well. NEUROLOGIC: The patient is alert and oriented x3. He does show deficits in his sensation in the lower extremities to light pin prick sensation. LAB DATA AND TESTS: Showed hemoglobin A1C of 10.7, nonfasting sugar at 207, BUN 27, creatinine 2.36. Electrolytes were essentially normal. Liver enzymes were normal. His total protein is slightly low at 6.2. His white blood cell count is 12,100, hemoglobin is 10.0, PLT count 350,000. He had x-ray of the foot which revealed no evidence of osteomyelitis. There appears to be soft tissue swelling otherwise noted. ASSESSMENT: A patient with diabetic foot wound. He has been admitted to the hospital for surgical consultation. We will obtain a MRI to rule out osteomyelitis. He has been started on IV Vancomycin. He will be continued on his usual home medications otherwise for his peripheral neuropathy and chronic pain syndrome.
[2017-01-02] MEDS: PATIENT OWN MEDICATION PO SCH (09:14)
[2017-01-02] MEDS: XANAX 1 MG PO SCH (09:14)
[2017-01-02] MEDS: Lasix 40 MG PO SCH (09:16)
[2017-01-02] MEDS: Protonix 40MG Tablet PO SCH (09:16)
[2017-01-02] MEDS: Norco 10/325 MG Tablet PO SCH (09:16)
[2017-01-02] MEDS: Catapres 0.1 MG PO SCH (09:17)
[2017-01-02] MEDS ORDERED: NON-FORMULARY ITEM (Omeprazole 20 Mg [Prilosec 20 Mg] 20 MG) PO SCH (10:00)
[2017-01-02] MEDS: VANCOCIN 1 GM VIAL*** 0.75 GM in Sodium Chloride 0.9% 250 ML 250 ML IV SCH (10:04)
--- NOTE | 2017-01-02 12:46 | XRAY ---
Indication: First MTP diabetic ulcer. Possible osteomyelitis. Sagittal, coronal, and axial MRI left forefoot/toes performed without contrast using T1, T2, and STIR sequences. No contrast given due to poor renal function. Comparison: None There is mild cutaneous/subcutaneous soft tissue edema signal involving the plantar and medial foot adjacent to the first MTP. No fluid collection/abscess. Flexor and extensor mechanism intact without abnormal signal. Visualized osseous structures and articulation intact. No suspicious bony lesions or abnormal bone marrow signal. Impression: Cellulitis adjacent to the first MTP. No abnormal fluid collection or underlying abnormal bone marrow signal.
--- NOTE | 2017-01-02 14:21 | CONS ---
CONSULT DATE: 01/02/2017 REASON FOR CONSULT: HISTORY: The patient was seen and examined last night at the bedside. He has an obvious major infection of the great toe at the metatarsophalangeal joint on the plantar surface. It looked quite concerning for osteo. An MRI has been performed today and is negative for osteo. Physical therapy has debrided the area and it certainly appears to look better. He has been treated with Vancomycin. He has responded to Vancomycin. There is no original culture. IMPRESSION: 1) The patient still has the major soft tissue infection of the metatarsophalangeal joint area. 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 3) He will need continued IV Vancomycin possibly switched to a p.o. agent at some point. 4) He will need to have some local wound care. Physical therapy has started this. PLAN: I would to see him back in one to two weeks in the office.
[2017-01-02] MEDS: xanAX 0.5 MG PO SCH (21:47)
[2017-01-02] MEDS ORDERED: Lantus Insulin ONE (22:58)
[2017-01-02] MEDS ORDERED: Lantus Insulin SQ SCH (23:02)
[2017-01-03] MEDS: PATIENT OWN MEDICATION PO SCH ×2 (00:08→09:33)
[2017-01-03] MEDS: NovoLOG Insulin SQ PRN ×2 (03:06→08:01)
[2017-01-03] MEDS ORDERED: Sodium Chloride 0.9% 10 ML FLUSH Syringe PORT FLUSH PRN (05:26)
[2017-01-03 05:40] LABS: BASOPHIL % 0.5 % (0.0-0.4); Eosinophil % 3.8 % (0.00-5.0); Granulocytes % 71.4 % (36.0-66.0); Mean Cell Volume 91.7 fl (78-100); Mean Corpuscular Hemoglobin 29.9 pg (26-32); Mean Platelet Volume 9.9 fl (6-9.5); Monocytes % 7.3 % (0.0-12.0); Platelet Count 344 K/mm3 (150-450); Red Blood Count 3.14 M/mm3 (4.1-5.6); Red Cell Distribution Width 12.1 % (11.5-14.0); White Blood Count 10.1 K/mm3 (4.0-10.5)
[2017-01-03 05:56] LABS: ANION GAP 11.5 MEQ/L (5-15); Potassium 4.6 mEq/L (3.5-5.1)
[2017-01-03] MEDS: NovoLOG Insulin SQ SCH ×2 (08:03→12:28)
--- NOTE | 2017-01-03 09:19 | PCM.DCORD ---
- Discharge Discharge Date: 01/03/17 Disposition: DC TO [facility] Condition: Fair Prescriptions: New Vancomycin/0.9 % Sod Chloride [Vanco 1 Gram/250 ml-0.9% NaCl] 0.75 gm IV DAILY #10 plast..bag Continue Omeprazole 20 MG [Prilosec 20 mg] 20 mg PO DAILY Insulin Lispro [Humalog] 8 units SQ BID Insulin Lispro [Humalog] 4 unit SQ BID Tapentadol HCl [Nucynta ER] 200 mg PO BID Hydrocodone/APAP 10/325 mg [[place] 10/325 MG Tablet] 1 tab PO DAILY Alprazolam 1 mg [Xanax 1 mg] 0.5 mg PO BID Furosemide 40 mg [Lasix 40 MG] 40 mg PO DAILY Clonidine HCl 0.1 mg [Catapres 0.1 MG] 0.1 mg PO DAILY Follow up with: AGUSTIN DONG [Primary Care Provider] - 1 Week JD RUBI [ACTIVE STAFF] - 1 Week
[2017-01-03] MEDS: Catapres 0.1 MG PO SCH (09:31)
[2017-01-03] MEDS: Protonix 40MG Tablet PO SCH (09:31)
[2017-01-03] MEDS: Norco 10/325 MG Tablet PO SCH (09:32)
[2017-01-03] MEDS: Lasix 40 MG PO SCH (09:33)
[2017-01-03] MEDS: xanAX 0.5 MG PO SCH (09:34)
[2017-01-03] MEDS: VANCOCIN 1 GM VIAL*** 0.75 GM in Sodium Chloride 0.9% 250 ML 250 ML IV SCH (09:40)
[2017-01-03 12:24] VITALS: BP 148/86; PULSE 100; O2SAT 98
[2017-01-03] MEDS ORDERED: Lantus Insulin SQ SCH (22:00)
--- NOTE | 2017-01-04 07:53 | DS ---
DISCHARGE DIAGNOSES: 1) DIABETIC FOOT WOUND. 2) DIABETES MELLITUS TYPE 1 UNDER POOR CONTROL. 3) RENAL INSUFFICIENCY. 4) DIABETIC PERIPHERAL NEUROPATHY. CONSULTANTS: Dr. Glynn. HISTORY: The patient is a 41 year-old white male patient presenting to my office with complaints of weakness and inability to care for himself any longer. He also noted that his left leg was swelling compared to the right. On evaluation in the office, the patient was found to have redness over the first metatarsal of the left foot. Underlying the metatarsal head had necrotic areas of callous that was beginning to slough off. The patient was unaware of this apparently. He was admitted to the hospital for evaluation and management. HOSPITAL COURSE: The patient was admitted to the medicine cardoza and begun on IV Vancomycin. Plain x-ray did not reveal osteomyelitis but after surgical consultation recommendation was for MRI which was also likewise negative for osteomyelitis. The patient had wound care management by physical therapy here. The surgeon did not recommend any debridement. The patient was given Vancomycin dosed by the pharmacy every 24 hours. The patient requested to be discharged to a nursing care facility for continuing care management and diabetic care. His home situation is quite bad with both his son and father having narcotic addiction. They had very poor insight into his overall health. The patient himself is quite argumentative about his diabetic medications but with this control his A1C is at 10.7. We tried to reason with him about the types of medication that he wished to use and better control of his diabetic care and he seemed to come around a little bit to our way of thinking. He was felt to be ready for discharge home on 01/03/2017. He will be discharged to [facility] where he will continue to receive IV Vancomycin on a daily basis for the next ten days. He will also receive wound care management. He will be discharged home on his usual medications as listed above in the history and physical. His laboratory studies on the day of discharge showed a white blood cell count of 10,100, hemoglobin 9.4, PLT count 344,000. Again his A1C was 10.7. It was noted that his BUN was 27, creatinine 2.36 on admission. The patient also has chronic pain specialist that he will be seeing in follow up and we will attempt to get him in to see a loading and unloading supervisor, Dr. Mancilla, who is in [facility] where he will be staying anyway for further wound care management of the foot.
[2017-01-04] MEDS ORDERED: TROUGH DRUG LEVELS IJ ONE (09:30)
== END 2017-01-03 12:45 | DRG 639 ==
LOC: MED SURG 10:29
PROVIDERS: ADMIT Family Medicine; ATTEND Family Medicine
DX: E10.65 Type 1 diabetes mellitus with hyperglycemia (principal); E10.621 Type 1 diabetes mellitus with foot ulcer; L97.521 Non-pressure chronic ulcer of other part of left foot limited to breakdown of skin; E10.42 Type 1 diabetes mellitus with diabetic polyneuropathy; G89.4 Chronic pain syndrome; F45.42 Pain disorder with related psychological factors
CPT/HCPCS: 36415; 73630; 73718; 80048; 80053; 82962; 83036; 85025; J1642; J2270; J3370; A9270-GY

== ENCOUNTER 2017-02-13 21:00 | Emergency (ER) | payer MEDICARE ==
[2017-02-13] MEDS ORDERED: Sodium Chloride 0.9% 1000 ML 1,000 ML IV SCH ×2 (21:15→23:45)
[2017-02-13] MEDS ORDERED: Phenergan 25 MG INJ IV ONE (21:15)
[2017-02-13] MEDS ORDERED: Phenergan 25 MG INJ ONE (21:24)
[2017-02-13] MEDS ORDERED: Sodium Chloride 0.9% 1000 ML 1,000 ML ONE ×2 (21:24→23:48)
--- NOTE | 2017-02-13 21:32 | ERPHSYRPT ---
- History of Present Illness Time Seen by Provider: 02/13/17 21:04 Source: patient Exam Limitations: no limitations Physician History: ABOUT 1 HOUR AGO PT STARTED WITH DIZZINESS, LIGHTHEADEDNESS AND DIAPHORESIS. PT HAD LEFT E[place] SURG[place] BECAUSE OF BLEEDING BEHIND HIS RETINA AND SINCE HAS HAD A SHARP LEFT FRONTAL HEADACHE. PT ALSO C/O A LESION ON HIS LEFT FOOT FOR THE PAST MONTH WHICH IS IMPROVING AND UNDER THE CARE OF DR CURTIS([employer]HE[employer]PER[employer] IN [place], [place]). PT DENIES CHEST PAIN, SHORTNESS OF AIR, VOMITING. Allergies/Adverse Reactions: Shellfish *RETIRED-09/25/12 [Shellfish] Allergy (Severe, Verified 02/13/17 21:22 ) Hives 12/20/15 patient states he IS allergic to shellfish diphenhydramine HCl [From Benadryl] Allergy (Unknown, Verified 02/13/17 21:22) influenza virus vaccine, specific [Influenza Virus Vacc,Specific] Allergy ( Unknown, Verified 02/13/17 21:22) ketorolac [From Toradol] Allergy (Verified 02/13/17 21:22) shellfish derived Allergy (Verified 02/13/17 21:22) Home Medications: Alprazolam 1 mg [Xanax 1 mg] 1 mg PO BID 01/01/17 [History] Insulin Lispro [Humalog] 0 unit SQ QID 01/01/17 [History] Insulin Detemir [Levemir] 10 units HS 01/11/17 [History] Tapentadol HCl [Nucynta ER] 250 mg PO BID 02/13/17 [History] Hx Tetanus, Diphtheria Vaccination/Date Given: No Hx Influenza Vaccination/Date Given: Yes Hx Pneumococcal Vaccination/Date Given: Yes - Review of Systems Respiratory: No Dyspnea Cardiac: No Chest Pain Abdominal/Gastrointestinal: No Abdominal Pain, No Vomiting Skin: Other (LEFT FOOT ULCER) Neurological: Dizziness, Headache, Other (LIGHTHEADEDNESS) Endocrine: Excessive Sweating All Other Systems: Reviewed and Negative - Past Medical History Pertinent Past Medical History: Yes Neurological History: No Pertinent History ENT History: Other Cardiac History: Other Respiratory History: No Pertinent History Endocrine Medical History: Diabetes Type I Musculoskeletal History: No Pertinent History GI Medical History: No Pertinent History History: Renal Disease Psycho-Social History: Anxiety, Depression Male Reproductive Disorders: No Pertinent History Other Medical History: Vision loss from DM, neuropathy, cardiac arrest. one functioning kidney. - Past Surgical History Past Surgical History: Yes Neuro Surgical History: No Pertinent History Cardiac: No Pertinent History Respiratory: No Pertinent History Gastrointestinal: Cholecystectomy Genitourinary: No Pertinent History Musculoskeletal: No Pertinent History Male Surgical History: No Pertinent History Other Surgical History: Left Knee surgery. right hand surgery. port placement - Social History Smoking Status: Former smoker How long have you smoked: 15 Exposure to second hand smoke: Yes Alcohol Use: Socially Drug Use: none Patient Lives Alone: No Significant Family History: diabetes - Nursing Vital Signs Nursing Vital Signs: Initial Vital Signs Pulse Rate 114 H 02/13/17 21:02 Respiratory Rate 18 02/13/17 21:02 Blood Pressure 176/100 02/13/17 21:02 O2 Sat by Pulse Oximetry 99 02/13/17 21:02 Pain Scale Pain Intensity 9 - Physical Exam General Appearance: alert Eye Exam: other (EOMI) Ears, Nose, Throat Exam: dry mucous membranes Neck Exam: normal inspection Respiratory Exam: lungs clear Cardiovascular Exam: normal heart sounds Gastrointestinal/Abdomen Exam: soft, normal bowel sounds Back Exam: normal range of motion Extremity Exam: other (MEDIAL PLANTAR ASPECT OF LEFT FOREFOOT HAS A HEALING ULCER ~ 1.5 CM DIAMETER) Neurologic Exam: alert, cooperative Skin Exam: No cyanosis - Course Nursing assessment & vital signs reviewed: Yes EKG Interpreted by Me: RATE (101), Sinus Tach, NORMAL AXIS, NORMAL INTERVALS - Radiology Exams Chest X-ray Interpretation: Interpreted by me, No Pneumonia - CT Exams Head CT Interpretation: Discussed w/radiologist (COMPARED TO 03/10/13: STABLE PROMINENT LATERAL VENTRICLES. NO NEW OR ACUTE INTRACRANIAL FINDINGS.) Ordered Tests: Active Orders 24 hr Category Date Time Status ACCUCHECK [Accucheck] STAT Care 02/13/17 22:39 Active Accucheck STAT Care 02/13/17 21:15 Active Solar Energy Advisor STAT Care 02/13/17 21:16 Active Clean Catch Urine Specimen STAT Care 02/13/17 21:15 Active EKG-ER Only STAT Care 02/13/17 21:15 Active IV Insertion STAT Care 02/13/17 21:15 Active CHEST 2 VIEWS (PA AND LAT) Stat Exams 02/13/17 21:15 Taken HEAD WITHOUT CONTRAST [CT] Stat Exams 02/13/17 21:15 Taken AMYLASE Stat Lab 02/13/17 21:34 Completed CBC W DIFF Stat Lab 02/13/17 21:34 Completed CMP Stat Lab 02/13/17 21:34 Completed CULTURE,URINE Stat Lab 02/13/17 22:32 Received ETHYL ALCOHOL Stat Lab 02/13/17 21:34 Completed LIPASE Stat Lab 02/13/17 21:34 Completed MAGNESIUM Stat Lab 02/13/17 21:34 Completed TROPONIN Q3H Lab 02/13/17 21:15 Completed TROPONIN Q3H Lab 02/14/17 00:15 Ordered TROPONIN Q3H Lab 02/14/17 03:15 Ordered TROPONIN Q3H Lab 02/14/17 06:15 Ordered TROPONIN Q3H Lab 02/14/17 09:15 Ordered UA W/ MICROSCOPIC Stat Lab 02/13/17 22:32 Completed Urine Triage Profile Stat Lab 02/13/17 22:32 Completed Medication Summary Generic Name Dose Route Start Last Admin Trade Name Freq PRN Reason Stop Dose Admin Sodium Chloride 1,000 mls @ 100 mls/hr 02/13/17 21:15 02/13/17 21:27 Sodium Chloride 0.9% 1000 Ml IV 03/15/17 21:14 100 mls/hr .Q10H NITO Administration Discontinued Medications Generic Name Dose Route Start Last Admin Trade Name Freq PRN Reason Stop Dose Admin Fentanyl Citrate 25 mcg 02/13/17 22:33 02/13/17 22:41 Sublimaze 100 Mcg/2 Ml IV 02/13/17 22:34 25 mcg STAT ONE Administration Fentanyl Citrate Confirm 02/13/17 22:40 Sublimaze 100 Mcg/2 Ml Administered 02/13/17 22:41 Dose 100 mcg .ROUTE .STK-MED ONE Sodium Chloride 1,000 mls @ 999 mls/hr 02/13/17 22:07 02/13/17 22:27 Sodium Chloride 0.9% 1000 Ml IV 02/13/17 23:07 999 mls/hr .Q1H1M STA Administration Insulin Human Regular 8 unit 02/13/17 22:07 02/13/17 22:27 Novolin R IV 02/13/17 22:08 8 unit STAT ONE Administration Insulin Human Regular Confirm 02/13/17 22:26 Novolin R Administered 02/13/17 22:27 Dose 8 unit .ROUTE .STK-MED ONE Promethazine HCl 12.5 mg 02/13/17 21:15 02/13/17 21:27 Phenergan 25 Mg Inj IV 02/13/17 21:16 12.5 mg STAT ONE Administration Promethazine HCl Confirm 02/13/17 21:24 Phenergan 25 Mg Inj Administered 02/13/17 21:25 Dose 25 mg .ROUTE .STK-MED ONE Lab/Rad Data: Laboratory Result Diagrams 02/13/17 21:34 02/13/17 21:34 Laboratory Results 02/13/17 02/13/17 02/13/17 Range/Units 22:32 22:32 21:34 WBC (4.0-10.5) K/mm3 RBC (4.1-5.6) M/mm3 Hgb (12.5-18.0) gm/dl Hct (42-50) % MCV (78-100) fl MCH (26-32) pg MCHC (32-36) g/dl RDW (11.5-14.0) % Plt Count (150-450) K/mm3 MPV (6-9.5) fl Gran % (36.0-66.0) % Lymphocytes % (24.0-44.0) % Monocytes % (0.0-12.0) % Eosinophils % (0.00-5.0) % Basophils % (0.0-0.4) % Basophils # (0-0.4) Sodium (136-145) mEq/L Potassium (3.5-5.1) mEq/L Chloride (98-107) mEq/L Carbon Dioxide (21-32) mEq/L Anion Gap (5-15) MEQ/L BUN (9-20) mg/dL Creatinine (0.55-1.30) mg/dl Estimated GFR ML/MIN Glucose (70-110) MG/DL Calcium (8.5-10.1) mg/dL Magnesium (1.8-2.4) mg/dL Total Bilirubin (0.2-1.0) mg/dL AST (15-37) U/L ALT (12-78) U/L Alkaline Phosphatase (46-116) U/L Troponin I (0.000-0.056) ng/ml Serum Total Protein (6.4-8.2) gm/dL Albumin (3.4-5.0) g/dL Amylase 44 (25-115) U/L Lipase 82 (73-393) U/L Ur Collection Type CLEAN CATCH Urine Color YELLOW (YELLOW) Urine Appearance CLEAR (CLEAR) Urine pH 6.0 (5-6) Ur Specific [place] 1.015 (1.005-1.025) Urine Protein 300 (Negative) Urine Ketones NEGATIVE (NEGATIVE) Urine Blood 50 (0-5) Scooby/ul Urine Nitrite NEGATIVE (NEGATIVE) Urine Bilirubin NEGATIVE (NEGATIVE) Urine Urobilinogen NORMAL (0-1) mg/dL Ur Leukocyte Esterase NEGATIVE (NEGATIVE) Urine Microscopic RBC 5-10 (0-2) /HPF Urine Microscopic WBC 0-2 (0-5) /HPF Ur Epithelial Cells RARE (FEW) /HPF Urine Bacteria RARE (NEGATIVE) /HPF Hyaline Casts 0-2 (0-2) /LPF Urine Glucose 1000 (NEGATIVE) mg/dL Urine Opiates Level NEG. (NEGATIVE) Ur Methadone NEG. (NEGATIVE) Urine Barbiturates NEG. (NEGATIVE) Ur Phencyclidine (PCP) NEG. (NEGATIVE) Urine Amphetamine NEG. (NEGATIVE) U Benzodiazepine Level POS. (NEGATIVE) Urine Cocaine NEG. (NEGATIVE) Urine Marijuana (THC) NEG. (NEGATIVE) Ethyl Alcohol (0.00-0.01) % Specimen Received 02/13/17222902/13/17 02/13/17 02/13/17 Range/Units 21:34 21:34 21:15 WBC 7.0 (4.0-10.5) K/mm3 RBC 3.37 L (4.1-5.6) M/mm3 Hgb 9.9 L (12.5-18.0) gm/dl Hct 30.9 L (42-50) % MCV 91.7 (78-100) fl MCH 29.3 (26-32) pg MCHC 32.0 (32-36) g/dl RDW 14.2 H (11.5-14.0) % Plt Count 330 (150-450) K/mm3 MPV 10.0 H (6-9.5) fl Gran % 55.7 (36.0-66.0) % Lymphocytes % 28.8 (24.0-44.0) % Monocytes % 9.1 (0.0-12.0) % Eosinophils % 5.4 H (0.00-5.0) % Basophils % 1.0 (0.0-0.4) % Basophils # 0.07 (0-0.4) Sodium 136 (136-145) mEq/L Potassium 4.7 (3.5-5.1) mEq/L Chloride 105 (98-107) mEq/L Carbon Dioxide 22.2 (21-32) mEq/L Anion Gap 13.6 (5-15) MEQ/L BUN 34 H (9-20) mg/dL Creatinine 3.33 H (0.55-1.30) mg/dl Estimated GFR 22 ML/MIN Glucose 425 H (70-110) MG/DL Calcium 8.3 L (8.5-10.1) mg/dL Magnesium 2.0 (1.8-2.4) mg/dL Total Bilirubin 0.10 L (0.2-1.0) mg/dL AST 24 (15-37) U/L ALT 19 (12-78) U/L Alkaline Phosphatase 84 (46-116) U/L Troponin I < 0.017 (0.000-0.056) ng/ml Serum Total Protein 6.0 L (6.4-8.2) gm/dL Albumin 2.0 L (3.4-5.0) g/dL Amylase (25-115) U/L Lipase (73-393) U/L Ur Collection Type Urine Color (YELLOW) Urine Appearance (CLEAR) Urine pH (5-6) Ur Specific [place] (1.005-1.025) Urine Protein (Negative) Urine Ketones (NEGATIVE) Urine Blood (0-5) Scooby/ul Urine Nitrite (NEGATIVE) Urine Bilirubin (NEGATIVE) Urine Urobilinogen (0-1) mg/dL Ur Leukocyte Esterase (NEGATIVE) Urine Microscopic RBC (0-2) /HPF Urine Microscopic WBC (0-5) /HPF Ur Epithelial Cells (FEW) /HPF Urine Bacteria (NEGATIVE) /HPF Hyaline Casts (0-2) /LPF Urine Glucose (NEGATIVE) mg/dL Urine Opiates Level (NEGATIVE) Ur Methadone (NEGATIVE) Urine Barbiturates (NEGATIVE) Ur Phencyclidine (PCP) (NEGATIVE) Urine Amphetamine (NEGATIVE) U Benzodiazepine Level (NEGATIVE) Urine Cocaine (NEGATIVE) Urine Marijuana (THC) (NEGATIVE) Ethyl Alcohol < 0.010 (0.00-0.01) % Specimen Received - Progress Discussed with .: Inocencia (TRANSFER TO [facility] D/T RENAL FAILURE.), Other (SPOKE WITH DR OSBORN(ER DR AT [facility])(9409) WHO ACCEPTED PT FOR TRANSFER TO [facility].) - Departure Time of Disposition: 23:27 Departure Disposition: Transfer ([facility]) Clinical Impression: RENAL FAILURE, HYPERGLYCEMIA, DIZZINESS, DM, LEFT FOOT ULCER, ANXIETY, DEPRESSION Condition: Stable Critical Care Time: No Referrals: AGUSTIN DONG [Primary Care Provider] -
[2017-02-13 21:37] LABS: Eosinophil % 5.4 % (0.00-5.0); Granulocytes % 55.7 % (36.0-66.0); Lymphocytes % 28.8 % (24.0-44.0); Mean Cell Volume 91.7 fl (78-100); Monocytes % 9.1 % (0.0-12.0); Platelet Count 330 K/mm3 (150-450); Red Blood Count 3.37 M/mm3 (4.1-5.6); Red Cell Distribution Width 14.2 % (11.5-14.0)
[2017-02-13 21:51] LABS: Mean Corpuscular Hemoglobin 29.3 pg (26-32)
[2017-02-13 21:58] LABS: LIPASE 82 U/L (73-393)
[2017-02-13 22:02] LABS: ALKALINE PHOSPHATASE 84 U/L (46-116); ANION GAP 13.6 MEQ/L (5-15); BLOOD UREA NITROGEN 34 mg/dL (9-20); CHLORIDE 105 mEq/L (98-107); Carbon Dioxide 22.2 mEq/L (21-32); ETHYL ALCOHOL < 0.010 % (0.00-0.01); Glucose 425 MG/DL (70-110); Potassium 4.7 mEq/L (3.5-5.1); SGOT/AST 24 U/L (15-37); SGPT/ALT 19 U/L (12-78); SODIUM 136 mEq/L (136-145)
[2017-02-13] MEDS ORDERED: Sodium Chloride 0.9% 1000 ML 1,000 ML IV STA (22:07)
[2017-02-13] MEDS ORDERED: NovoLIN R IV ONE (22:07)
[2017-02-13] MEDS ORDERED: NovoLIN R ONE (22:26)
[2017-02-13] MEDS ORDERED: SUBLIMAZE 100 MCG/2 ML IV ONE (22:33)
[2017-02-13] MEDS ORDERED: SUBLIMAZE 100 MCG/2 ML ONE (22:40)
[2017-02-13 22:47] LABS: Bilirubin NEGATIVE (NEGATIVE); Blood 50 Ery/ul (0-5); Collection Type CLEAN CATCH; Glucose 1000 mg/dL (NEGATIVE); Leukocyte Esterase NEGATIVE (NEGATIVE)
[2017-02-13 22:48] LABS: COMPLETE URINE MICROSCOPIC? YES
[2017-02-13 22:55] LABS: ADD URINE CULTURE? YES (NO); Bacteria RARE /HPF (NEGATIVE); Epithelial Cells RARE /HPF (FEW); Hyaline Casts 0-2 /LPF (0-2); WBC 0-2 /HPF (0-5)
[2017-02-14 00:29] VITALS: BP 140/86; PULSE 95; O2SAT 98
--- NOTE | 2017-02-14 08:47 | XRAY ---
Indication: Left-sided headache and dizziness. Status post left eye surgery. Multiple contiguous axial images obtained through the head without contrast. Comparison: March 20, 2013. There is age-appropriate global atrophy and minimal periventricular degenerative micro-ischemia. Lateral ventricles again prominent with normal appearing third and fourth ventricles. No acute intracranial hemorrhage, abnormal extra-axial fluid collection, or mass effect. Bony calvarium intact. Visualized paranasal sinuses and mastoid air cells clear. Orbits are bilaterally symmetric. Impression: Nonacute senile brain with stable prominent lateral ventricles. CTDI 68.32
--- NOTE | 2017-02-14 09:01 | XRAY ---
Indication: Headache and dizziness. Comparison: September 27, 2016. AP/lateral chest again demonstrates normal heart, lungs, and bony thorax with a left-sided Port-A-Cath.
== END 2017-02-14 00:35 | disposition short-term general hospital (02) ==
LOC: ED 21:00
DX: N19 Unspecified kidney failure (principal); R73.9 Hyperglycemia, unspecified; R42 Dizziness and giddiness; E11.9 Type 2 diabetes mellitus without complications; L97.529 Non-pressure chronic ulcer of other part of left foot with unspecified severity; F41.9 Anxiety disorder, unspecified; F32.9 Major depressive disorder, single episode, unspecified; Z79.899 Other long term (current) drug therapy
CPT/HCPCS: 93041; 96374; 99285; 82962; 96360; 96361; 96375; 93005; 82150; 81000; 36415; 83690; 83735; 80307; 85025; 80053; 84484; 87086; 71020; 70450; G0481; J2550; J3010; A9270-GY

== ENCOUNTER 2017-02-20 19:51 | Emergency (ER) | payer MEDICARE ==
--- NOTE | 2017-02-20 20:55 | ERPHSYRPT ---
- History of Present Illness Time Seen by Provider: 02/20/17 20:34 Source: patient Exam Limitations: no limitations Physician History: PT STATES TODAY HE HAS BEEN CRAMPING ALL OVER AND IS CONCERNED HIS CALCIUM IS LOW. PT DENIES CHEST PAIN, SHORTNESS OF AIR, FEVER, ABDOMINAL PAIN; ADMITS TO A HEALING LESION ON THE LEFT FOOT AFTER SURGERY [address] CURTIS. Allergies/Adverse Reactions: Shellfish *RETIRED-09/25/12 [Shellfish] Allergy (Severe, Verified 02/13/17 21:22 ) Hives 12/20/15 patient states he IS allergic to shellfish diphenhydramine HCl [From Benadryl] Allergy (Unknown, Verified 02/13/17 21:22) influenza virus vaccine, specific [Influenza Virus Vacc,Specific] Allergy ( Unknown, Verified 02/13/17 21:22) ketorolac [From Toradol] Allergy (Verified 02/13/17 21:22) shellfish derived Allergy (Verified 02/13/17 21:22) Home Medications: Alprazolam 1 mg [Xanax 1 mg] 1 mg PO BID 01/01/17 [History] Insulin Lispro [Humalog] 0 unit SQ QID 01/01/17 [History] Insulin Detemir [Levemir] 10 units HS 01/11/17 [History] Tapentadol HCl [Nucynta ER] 250 mg PO BID 02/13/17 [History] Hx Tetanus, Diphtheria Vaccination/Date Given: No Hx Influenza Vaccination/Date Given: Yes Hx Pneumococcal Vaccination/Date Given: Yes - Review of Systems Constitutional: No Fever Respiratory: No Dyspnea Cardiac: No Chest Pain Abdominal/Gastrointestinal: No Abdominal Pain Musculoskeletal: Other (CRAMPING ALL OVER TODAY; HEALING LESION ON LEFT FOOT.) All Other Systems: Reviewed and Negative - Past Medical History Pertinent Past Medical History: Yes Neurological History: No Pertinent History ENT History: Other Cardiac History: Other Respiratory History: No Pertinent History Endocrine Medical History: Diabetes Type I Musculoskeletal History: No Pertinent History GI Medical History: No Pertinent History History: Renal Disease Psycho-Social History: Anxiety, Depression Male Reproductive Disorders: No Pertinent History Other Medical History: Vision loss from DM, neuropathy, cardiac arrest. one functioning kidney. - Past Surgical History Past Surgical History: Yes Neuro Surgical History: No Pertinent History Cardiac: No Pertinent History Respiratory: No Pertinent History Gastrointestinal: Cholecystectomy Genitourinary: No Pertinent History Musculoskeletal: No Pertinent History Male Surgical History: No Pertinent History Other Surgical History: Left Knee surgery. right hand surgery. port placement - Social History Smoking Status: Former smoker How long have you smoked: 15 Exposure to second hand smoke: Yes Alcohol Use: Socially Drug Use: none Patient Lives Alone: No Significant Family History: diabetes - Nursing Vital Signs Nursing Vital Signs: Initial Vital Signs Pulse Rate 90 02/20/17 19:52 Respiratory Rate 20 02/20/17 19:52 Blood Pressure 147/83 02/20/17 19:52 O2 Sat by Pulse Oximetry 97 02/20/17 19:52 Pain Scale Pain Intensity 8 - Physical Exam General Appearance: alert Eye Exam: PERRL/EOMI Ears, Nose, Throat Exam: TMs normal, pharynx normal, moist mucous membranes Neck Exam: normal inspection Respiratory Exam: lungs clear Cardiovascular Exam: normal heart sounds Gastrointestinal/Abdomen Exam: soft, normal bowel sounds Back Exam: normal range of motion Extremity Exam: other (BANDAGED LESION ON MEDIAL ASPECT OF LEFT FOREFOOT - BANDAGE REMOVED REVEALING A HEALING DECUBITUS ULCER WITHOUT ERYTHEMA OR EXUDATE. ) Neurologic Exam: alert, cooperative Skin Exam: No cyanosis - Course Nursing assessment & vital signs reviewed: Yes Ordered Tests: Active Orders 24 hr Category Date Time Status IV Insertion STAT Care 02/20/17 21:27 Active CBC W DIFF Stat Lab 02/20/17 21:30 Completed CMP Stat Lab 02/20/17 21:30 Completed MAGNESIUM Stat Lab 02/20/17 21:30 Completed Lab/Rad Data: Laboratory Result Diagrams 02/20/17 21:30 02/20/17 21:30 Laboratory Results 02/20/17 02/20/17 Range/Units 21:30 21:30 WBC 8.8 (4.0-10.5) K/mm3 RBC 3.17 L (4.1-5.6) M/mm3 Hgb 9.5 L (12.5-18.0) gm/dl Hct 29.6 L (42-50) % MCV 93.4 (78-100) fl MCH 29.9 (26-32) pg MCHC 32.1 (32-36) g/dl RDW 14.3 H (11.5-14.0) % Plt Count 208 (150-450) K/mm3 MPV 11.0 H (6-9.5) fl Gran % 58.0 (36.0-66.0) % Lymphocytes % 30.6 (24.0-44.0) % Monocytes % 7.3 (0.0-12.0) % Eosinophils % 3.3 (0.00-5.0) % Basophils % 0.8 (0.0-0.4) % Basophils # 0.07 (0-0.4) Sodium 132 L (136-145) mEq/L Potassium 4.4 (3.5-5.1) mEq/L Chloride 103 (98-107) mEq/L Carbon Dioxide 20.7 L (21-32) mEq/L Anion Gap 12.6 (5-15) MEQ/L BUN 41 H (9-20) mg/dL Creatinine 3.26 H (0.55-1.30) mg/dl Estimated GFR 22 ML/MIN Glucose 223 H (70-110) MG/DL Calcium 8.7 (8.5-10.1) mg/dL Magnesium 2.1 (1.8-2.4) mg/dL Total Bilirubin 0.10 L (0.2-1.0) mg/dL AST 39 H (15-37) U/L ALT 20 (12-78) U/L Alkaline Phosphatase 77 (46-116) U/L Serum Total Protein 5.7 L (6.4-8.2) gm/dL Albumin 1.8 L (3.4-5.0) g/dL - Departure Time of Disposition: 22:23 Departure Disposition: Home Clinical Impression: GENERALIZED MYALGIAS, DM, ULCER OF LEFT FOOT, CKD, ANEMIA, ANXIETY, DEPRESSION Condition: Stable Critical Care Time: No Referrals: AGUSTIN DONG [Primary Care Provider] - Instructions: Arthralgia Additional Instructions: FOLLOW UP WITH PRIVATE DOCTOR TOMORROW.
[2017-02-20 21:38] LABS: BASOPHIL % 0.8 % (0.0-0.4); Eosinophil % 3.3 % (0.00-5.0); Lymphocytes % 30.6 % (24.0-44.0); Mean Cell Volume 93.4 fl (78-100); Monocytes % 7.3 % (0.0-12.0); Platelet Count 208 K/mm3 (150-450); Red Blood Count 3.17 M/mm3 (4.1-5.6); Red Cell Distribution Width 14.3 % (11.5-14.0); White Blood Count 8.8 K/mm3 (4.0-10.5)
[2017-02-20 21:51] LABS: Mean Corpuscular Hemoglobin 29.9 pg (26-32)
[2017-02-20 22:00] LABS: ALBUMIN 1.8 g/dL (3.4-5.0); ANION GAP 12.6 MEQ/L (5-15); BILIRUBIN,TOTAL 0.1 mg/dL (0.2-1.0); Carbon Dioxide 20.7 mEq/L (21-32); MAGNESIUM 2.1 mg/dL (1.8-2.4); Potassium 4.4 mEq/L (3.5-5.1); Total Protein 5.7 gm/dL (6.4-8.2)
[2017-02-20] MEDS ORDERED: Hydromorphone 1 mg/ml Ampule IV ONE (22:23)
[2017-02-20] MEDS ORDERED: Phenergan 25 MG INJ IV ONE (22:23)
[2017-02-20] MEDS ORDERED: Phenergan 25 MG INJ ONE (22:30)
[2017-02-20] MEDS ORDERED: Hydromorphone 1 mg/ml Ampule ONE (22:31)
[2017-02-20 22:48] VITALS: BP 116/65; PULSE 88; O2SAT 97
== END 2017-02-20 22:48 | disposition home or self-care (01) ==
LOC: ED 19:51
DX: M79.1 Myalgia (principal); L97.529 Non-pressure chronic ulcer of other part of left foot with unspecified severity; E10.9 Type 1 diabetes mellitus without complications; N18.9 Chronic kidney disease, unspecified; D64.9 Anemia, unspecified; F41.9 Anxiety disorder, unspecified; F32.9 Major depressive disorder, single episode, unspecified
CPT/HCPCS: 36000; 36415; 80053; 83735; 85025; 96374; 96375; 99284; J1170; J1642; J2550

== ENCOUNTER 2017-04-27 06:27 | Emergency (ER) | payer MEDICARE ==
--- NOTE | 2017-04-27 06:46 | ERPHSYRPT ---
<PACO GIL - Last Filed: 04/27/17 08:52> - History of Present Illness Time Seen by Provider: 04/27/17 06:41 Allergies/Adverse Reactions: Shellfish *RETIRED-09/25/12 [Shellfish] Allergy (Severe, Verified 04/27/17 06:55 ) Hives 12/20/15 patient states he IS allergic to shellfish diphenhydramine HCl [From Benadryl] Allergy (Unknown, Verified 04/27/17 06:55) influenza virus vaccine, specific [Influenza Virus Vacc,Specific] Allergy ( Unknown, Verified 04/27/17 06:55) ketorolac [From Toradol] Allergy (Verified 04/27/17 06:55) shellfish derived Allergy (Verified 04/27/17 06:55) Home Medications: Alprazolam 1 mg [Xanax 1 mg] 1 mg PO BID 01/01/17 [History] Insulin Lispro [Humalog] 0 unit SQ QID 01/01/17 [History] Insulin Detemir [Levemir] 10 units HS 01/11/17 [History] Tapentadol HCl [Nucynta ER] 250 mg PO BID 02/13/17 [History] - Nursing Vital Signs Nursing Vital Signs: Initial Vital Signs Temperature 97.8 F 04/27/17 06:33 Pulse Rate 91 H 04/27/17 06:33 Respiratory Rate 20 04/27/17 06:33 Blood Pressure 155/85 04/27/17 06:33 O2 Sat by Pulse Oximetry 95 04/27/17 06:33 Pain Scale Pain Intensity 8 - Radiology Exams Chest X-ray Interpretation: Interpreted by me, Other (mild pulmonary vascular prominence, comp CXR 04/06/17.) Ordered Tests: Active Orders 24 hr Category Date Time Status Gun Tester STAT Care 04/27/17 06:49 Active EKG-ER Only STAT Care 04/27/17 06:48 Active IV Insertion STAT Care 04/27/17 07:13 Active Pulse Oximetry (ED) STAT Care 04/27/17 06:48 Active CHEST 1 VIEW (PORTABLE) Stat Exams 04/27/17 06:49 Completed CBC W DIFF Stat Lab 04/27/17 06:50 Completed CK-Creatinine Phosphokinase Urgent Lab 04/27/17 06:50 Completed CMP Urgent Lab 04/27/17 06:50 Completed D-DIMER QUANTITATION Stat Lab 04/27/17 06:50 Completed Lactic Acid Stat Lab 04/27/17 07:20 Completed MAGNESIUM Urgent Lab 04/27/17 06:50 Completed NT PRO BNP Urgent Lab 04/27/17 06:50 Completed TROPONIN Q3H Lab 04/27/17 06:50 Completed TROPONIN Q3H Lab 04/27/17 10:30 Completed Medication Summary Discontinued Medications Generic Name Dose Route Start Last Admin Trade Name Caridad PRN Reason Stop Dose Admin Aspirin 324 mg 04/27/17 06:48 04/27/17 07:06 Baby Aspirin 81 Mg Chew PO 04/27/17 06:49 324 mg STAT ONE Administration Aspirin Confirm 04/27/17 07:04 Baby Aspirin 81 Mg Chew Administered 04/27/17 07:05 Dose 324 mg .ROUTE .STK-MED ONE Sodium Chloride 1,000 mls @ 50 mls/hr 04/27/17 07:00 04/27/17 07:06 Sodium Chloride 0.9% 1000 Ml IV 05/27/17 06:59 50 mls/hr .Q20H NITO Administration Sodium Chloride Confirm 04/27/17 07:04 Sodium Chloride 0.9% 1000 Ml Administered 04/27/17 07:05 Dose 1,000 mls @ ud .ROUTE .STK-MED ONE Nitroglycerin 0.4 mg 04/27/17 06:48 04/27/17 07:06 Nitrostat 0.4 Mg (Ed) SL 04/27/17 06:49 0.4 mg STAT ONE Administration Nitroglycerin Confirm 04/27/17 07:04 Nitrostat 0.4 Mg (Ed) Administered 04/27/17 07:05 Dose 0.4 mg SL .STK-MED ONE Lab/Rad Data: Laboratory Result Diagrams 04/27/17 06:50 04/27/17 06:50 Laboratory Results 04/27/17 04/27/17 04/27/17 Range/Units 10:30 07:20 06:50 WBC (4.0-10.5) K/mm3 RBC (4.1-5.6) M/mm3 Hgb (12.5-18.0) gm/dl Hct (42-50) % MCV (78-100) fl MCH (26-32) pg MCHC (32-36) g/dl RDW (11.5-14.0) % Plt Count (150-450) K/mm3 MPV (6-9.5) fl Gran % (36.0-66.0) % Lymphocytes % (24.0-44.0) % Monocytes % (0.0-12.0) % Eosinophils % (0.00-5.0) % Basophils % (0.0-0.4) % Basophils # (0-0.4) D-Dimer (0-500) ng/mL Sodium 139 (136-145) mEq/L Potassium 3.8 (3.5-5.1) mEq/L Chloride 101 (98-107) mEq/L Carbon Dioxide 28.3 (21-32) mEq/L Anion Gap 13.8 (5-15) MEQ/L BUN 21 H (9-20) mg/dL Creatinine 3.21 H (0.55-1.30) mg/dl Estimated GFR 23 ML/MIN Glucose 167 H (70-110) MG/DL Lactic Acid 1.1 (0.4-2.0) Calcium 8.2 L (8.5-10.1) mg/dL Magnesium 2.2 (1.8-2.4) mg/dL Total Bilirubin 0.20 (0.2-1.0) mg/dL AST 46 H (15-37) U/L ALT 36 (12-78) U/L Alkaline Phosphatase 85 (46-116) U/L Creatine Kinase 1082 H (39-308) U/L Troponin I < 0.017 < 0.017 (0.000-0.056) ng/ml NT-Pro-B Natriuret Pep 9940 H (0-125) pg/ml Serum Total Protein 5.2 L (6.4-8.2) gm/dL Albumin 2.0 L (3.4-5.0) g/dL 04/27/17 04/27/17 Range/Units 06:50 06:50 WBC 9.1 (4.0-10.5) K/mm3 RBC 2.38 L (4.1-5.6) M/mm3 Hgb 7.0 L (12.5-18.0) gm/dl Hct 23.1 L (42-50) % MCV 97.1 (78-100) fl MCH 29.4 (26-32) pg MCHC 30.3 L (32-36) g/dl RDW 14.9 H (11.5-14.0) % Plt Count 327 (150-450) K/mm3 MPV 9.5 (6-9.5) fl Gran % 58.4 (36.0-66.0) % Lymphocytes % 27.2 (24.0-44.0) % Monocytes % 8.7 (0.0-12.0) % Eosinophils % 4.9 (0.00-5.0) % Basophils % 0.8 (0.0-0.4) % Basophils # 0.07 (0-0.4) D-Dimer 791 H* (0-500) ng/mL Sodium (136-145) mEq/L Potassium (3.5-5.1) mEq/L Chloride (98-107) mEq/L Carbon Dioxide (21-32) mEq/L Anion Gap (5-15) MEQ/L BUN (9-20) mg/dL Creatinine (0.55-1.30) mg/dl Estimated GFR ML/MIN Glucose (70-110) MG/DL Lactic Acid (0.4-2.0) Calcium (8.5-10.1) mg/dL Magnesium (1.8-2.4) mg/dL Total Bilirubin (0.2-1.0) mg/dL AST (15-37) U/L ALT (12-78) U/L Alkaline Phosphatase (46-116) U/L Creatine Kinase (39-308) U/L Troponin I (0.000-0.056) ng/ml NT-Pro-B Natriuret Pep (0-125) pg/ml Serum Total Protein (6.4-8.2) gm/dL Albumin (3.4-5.0) g/dL - Progress Progress Note: Pt care discussed and care accepted from Dr Ferreira at 07:00. 04/27/17 07:20 Discussed with : Other (Dr Santoro [facility]) - Departure Time of Disposition: 08:52 Departure Disposition: Transfer (Transfer To [facility] ER per Dr Santoro) Clinical Impression: Shortness of breath, Anemia, Elevated d-dimer, Renal failure Condition: Stable Critical Care Time: No Referrals: AGUSTIN DONG [Primary Care Provider] - <FERREIRAROEL - Last Filed: 04/27/17 18:53> - History of Present Illness Historian: patient, EMS Exam Limitations: no limitations Physician History: pt is dialysis pt who had recent port right chest 2 weeks for same and had dialysis 2 days ago, but now right CP at site of port - no fever, but shortness of breath with deep breath prior cardiac arrest but no known CAD; no N/V prior CVA affecting eye - [place] ASA in past also have twitching of left leg today Timing/Duration: today Quality: sharpness, throbbing Chest Pain Radiation: no radiation Severity of Pain-Max: moderate Severity of Pain-Current: moderate Associated Symptoms: shortness of breath Nitro Today/Relief: 0.4 mg x 1, provided by ED Aspirin Treatment Today: 325 mg x 1, provided by ED Hx Tetanus, Diphtheria Vaccination/Date Given: No Hx Influenza Vaccination/Date Given: Yes Hx Pneumococcal Vaccination/Date Given: Yes - Review of Systems Constitutional: No Fever, No Chills Eyes: No Symptoms Ears, Nose, & Throat: No Symptoms Respiratory: Dyspnea, No Cough Cardiac: Chest Pain, No Edema, No Syncope Abdominal/Gastrointestinal: No Abdominal Pain, No Nausea, No Vomiting, No Diarrhea Genitourinary Symptoms: No Dysuria Musculoskeletal: No Back Pain, No Neck Pain Skin: No Rash Neurological: No Dizziness, No Focal Weakness, No Sensory Changes Psychological: No Symptoms Endocrine: No Symptoms All Other Systems: Reviewed and Negative - Past Medical History Pertinent Past Medical History: Yes Neurological History: No Pertinent History ENT History: Other Cardiac History: Other Respiratory History: No Pertinent History Endocrine Medical History: Diabetes Type I Musculoskeletal History: No Pertinent History GI Medical History: No Pertinent History History: Renal Disease Psycho-Social History: Anxiety, Depression Male Reproductive Disorders: No Pertinent History Other Medical History: Vision loss from DM, neuropathy, cardiac arrest. one functioning kidney. - Past Surgical History Past Surgical History: Yes Neuro Surgical History: No Pertinent History Cardiac: No Pertinent History Respiratory: No Pertinent History Gastrointestinal: Cholecystectomy Genitourinary: No Pertinent History Musculoskeletal: No Pertinent History Male Surgical History: No Pertinent History Other Surgical History: Left Knee surgery. right hand surgery. port placement - Social History Smoking Status: Former smoker How long have you smoked: 15 Exposure to second hand smoke: Yes Alcohol Use: Socially Drug Use: none Patient Lives Alone: No Significant Family History: diabetes - Nursing Vital Signs Nursing Vital Signs: Initial Vital Signs Temperature 97.8 F 04/27/17 06:33 Pulse Rate 91 H 04/27/17 06:33 Respiratory Rate 20 04/27/17 06:33 Blood Pressure 155/85 04/27/17 06:33 O2 Sat by Pulse Oximetry 95 04/27/17 06:33 Pain Scale Pain Intensity 8 - Physical Exam General Appearance: no apparent distress, alert Eye Exam: PERRL/EOMI, eyes nml inspection Ears, Nose, Throat Exam: normal ENT inspection, moist mucous membranes Neck Exam: normal inspection, non-tender, supple, full range of motion Respiratory Exam: normal breath sounds, lungs clear, No respiratory distress Cardiovascular Exam: regular rate/rhythm, normal heart sounds Gastrointestinal/Abdomen Exam: soft, No tenderness, No mass Back Exam: normal inspection, No CVA tenderness, No vertebral tenderness Extremity Exam: normal inspection, normal range of motion Neurologic Exam: alert, oriented x 3, cooperative, normal mood/affect, sensation nml, No motor deficits Skin Exam: normal color, warm, dry - Course Nursing assessment & vital signs reviewed: Yes EKG Interpreted by Me: Sinus Rhythm, NORMAL AXIS, Non-specific ST Changes Ordered Tests: Active Orders 24 hr Category Date Time Status Gun Tester STAT Care 04/27/17 06:49 Active EKG-ER Only STAT Care 04/27/17 06:48 Active IV Insertion STAT Care 04/27/17 07:13 Active Pulse Oximetry (ED) STAT Care 04/27/17 06:48 Active CHEST 1 VIEW (PORTABLE) Stat Exams 04/27/17 06:49 Completed CBC W DIFF Stat Lab 04/27/17 06:50 Completed CK-Creatinine Phosphokinase Urgent Lab 04/27/17 06:50 Completed CMP Urgent Lab 04/27/17 06:50 Completed D-DIMER QUANTITATION Stat Lab 04/27/17 06:50 Completed Lactic Acid Stat Lab 04/27/17 07:20 Completed MAGNESIUM Urgent Lab 04/27/17 06:50 Completed NT PRO BNP Urgent Lab 04/27/17 06:50 Completed TROPONIN Q3H Lab 04/27/17 06:50 Completed TROPONIN Q3H Lab 04/27/17 10:30 Completed Medication Summary Discontinued Medications Generic Name Dose Route Start Last Admin Trade Name Freq PRN Reason Stop Dose Admin Aspirin 324 mg 11/24/17 06:48 04/27/17 07:06 Baby Aspirin 81 Mg Chew PO 04/27/17 06:49 324 mg STAT ONE Administration Aspirin Confirm 04/27/17 07:04 Baby Aspirin 81 Mg Chew Administered 04/27/17 07:05 Dose 324 mg .ROUTE .STK-MED ONE Sodium Chloride 1,000 mls @ 50 mls/hr 04/27/17 07:00 04/27/17 07:06 Sodium Chloride 0.9% 1000 Ml IV 05/27/17 06:59 50 mls/hr .Q20H NITO Administration Sodium Chloride Confirm 04/27/17 07:04 Sodium Chloride 0.9% 1000 Ml Administered 04/27/17 07:05 Dose 1,000 mls @ ud .ROUTE .STK-MED ONE Nitroglycerin 0.4 mg 04/27/17 06:48 04/27/17 07:06 Nitrostat 0.4 Mg (Ed) SL 04/27/17 06:49 0.4 mg STAT ONE Administration Nitroglycerin Confirm 04/27/17 07:04 Nitrostat 0.4 Mg (Ed) Administered 04/27/17 07:05 Dose 0.4 mg SL .STK-MED ONE Lab/Rad Data: Laboratory Result Diagrams 04/27/17 06:50 04/27/17 06:50 Laboratory Results 04/27/17 04/27/17 04/27/17 Range/Units 10:30 07:20 06:50 WBC (4.0-10.5) K/mm3 RBC (4.1-5.6) M/mm3 Hgb (12.5-18.0) gm/dl Hct (42-50) % MCV (78-100) fl MCH (26-32) pg MCHC (32-36) g/dl RDW (11.5-14.0) % Plt Count (150-450) K/mm3 MPV (6-9.5) fl Gran % (36.0-66.0) % Lymphocytes % (24.0-44.0) % Monocytes % (0.0-12.0) % Eosinophils % (0.00-5.0) % Basophils % (0.0-0.4) % Basophils # (0-0.4) D-Dimer (0-500) ng/mL Sodium 139 (136-145) mEq/L Potassium 3.8 (3.5-5.1) mEq/L Chloride 101 (98-107) mEq/L Carbon Dioxide 28.3 (21-32) mEq/L Anion Gap 13.8 (5-15) MEQ/L BUN 21 H (9-20) mg/dL Creatinine 3.21 H (0.55-1.30) mg/dl Estimated GFR 23 ML/MIN Glucose 167 H (70-110) MG/DL Lactic Acid 1.1 (0.4-2.0) Calcium 8.2 L (8.5-10.1) mg/dL Magnesium 2.2 (1.8-2.4) mg/dL Total Bilirubin 0.20 (0.2-1.0) mg/dL AST 46 H (15-37) U/L ALT 36 (12-78) U/L Alkaline Phosphatase 85 (46-116) U/L Creatine Kinase 1082 H (39-308) U/L Troponin I < 0.017 < 0.017 (0.000-0.056) ng/ml NT-Pro-B Natriuret Pep 9940 H (0-125) pg/ml Serum Total Protein 5.2 L (6.4-8.2) gm/dL Albumin 2.0 L (3.4-5.0) g/dL 04/27/17 04/27/17 Range/Units 06:50 06:50 WBC 9.1 (4.0-10.5) K/mm3 RBC 2.38 L (4.1-5.6) M/mm3 Hgb 7.0 L (12.5-18.0) gm/dl Hct 23.1 L (42-50) % MCV 97.1 (78-100) fl MCH 29.4 (26-32) pg MCHC 30.3 L (32-36) g/dl RDW 14.9 H (11.5-14.0) % Plt Count 327 (150-450) K/mm3 MPV 9.5 (6-9.5) fl Gran % 58.4 (36.0-66.0) % Lymphocytes % 27.2 (24.0-44.0) % Monocytes % 8.7 (0.0-12.0) % Eosinophils % 4.9 (0.00-5.0) % Basophils % 0.8 (0.0-0.4) % Basophils # 0.07 (0-0.4) D-Dimer 791 H* (0-500) ng/mL Sodium (136-145) mEq/L Potassium (3.5-5.1) mEq/L Chloride (98-107) mEq/L Carbon Dioxide (21-32) mEq/L Anion Gap (5-15) MEQ/L BUN (9-20) mg/dL Creatinine (0.55-1.30) mg/dl Estimated GFR ML/MIN Glucose (70-110) MG/DL Lactic Acid (0.4-2.0) Calcium (8.5-10.1) mg/dL Magnesium (1.8-2.4) mg/dL Total Bilirubin (0.2-1.0) mg/dL AST (15-37) U/L ALT (12-78) U/L Alkaline Phosphatase (46-116) U/L Creatine Kinase (39-308) U/L Troponin I (0.000-0.056) ng/ml NT-Pro-B Natriuret Pep (0-125) pg/ml Serum Total Protein (6.4-8.2) gm/dL Albumin (3.4-5.0) g/dL - Progress Progress: improved, re-examined Air Movement: good Progress Note: 04/27/17 06:[address] Gil at 0700 for interpretation of remaining tests and final disposition and treatment after discussion of remaining tests pending Blood Culture(s) Obtained: No Antibiotics given: No Counseled pt/family regarding: lab results, diagnosis, need for follow-up, rad results
[2017-04-27] MEDS ORDERED: BABY ASPIRIN 81 MG CHEW PO ONE (06:48)
[2017-04-27] MEDS ORDERED: Nitrostat 0.4 MG (ED) SL ONE ×2 (06:48→07:04)
[2017-04-27 06:59] LABS: BASOPHIL % 0.8 % (0.0-0.4); Eosinophil % 4.9 % (0.00-5.0); Granulocytes % 58.4 % (36.0-66.0); Lymphocytes % 27.2 % (24.0-44.0); Mean Cell Volume 97.1 fl (78-100); Mean Corpuscular Hemoglobin 29.4 pg (26-32); Mean Platelet Volume 9.5 fl (6-9.5); Monocytes % 8.7 % (0.0-12.0); Platelet Count 327 K/mm3 (150-450); Red Blood Count 2.38 M/mm3 (4.1-5.6); Red Cell Distribution Width 14.9 % (11.5-14.0); White Blood Count 9.1 K/mm3 (4.0-10.5)
[2017-04-27] MEDS ORDERED: Sodium Chloride 0.9% 1000 ML 1,000 ML IV SCH (07:00)
[2017-04-27] MEDS ORDERED: BABY ASPIRIN 81 MG CHEW ONE (07:04)
[2017-04-27] MEDS ORDERED: Sodium Chloride 0.9% 1000 ML 1,000 ML ONE (07:04)
[2017-04-27 07:52] LABS: ALKALINE PHOSPHATASE 85 U/L (46-116); ANION GAP 13.8 MEQ/L (5-15); BLOOD UREA NITROGEN 21 mg/dL (9-20); CHLORIDE 101 mEq/L (98-107); Carbon Dioxide 28.3 mEq/L (21-32); Glucose 167 MG/DL (70-110); MAGNESIUM 2.2 mg/dL (1.8-2.4); Potassium 3.8 mEq/L (3.5-5.1); SGOT/AST 46 U/L (15-37); SGPT/ALT 36 U/L (12-78); SODIUM 139 mEq/L (136-145); Total Protein 5.2 gm/dL (6.4-8.2)
[2017-04-27 07:54] LABS: TROPONIN < 0.017 ng/ml (0.000-0.056)
--- NOTE | 2017-04-27 08:43 | XRAY ---
Indication: Chest pain. Comparison: April 06, 2017. Portable chest demonstrates new minimal bibasilar infiltrates/atelectasis and right-sided large-bore dialysis catheter. Remaining heart, lungs, and left-sided Port-A-Cath unremarkable.
[2017-04-27 10:00] VITALS: BP 120/75; PULSE 86; O2SAT 96
== END 2017-04-27 11:03 | disposition short-term general hospital (02) ==
LOC: ED 06:27
DX: R06.02 Shortness of breath (principal); D64.9 Anemia, unspecified; R79.1 Abnormal coagulation profile; N19 Unspecified kidney failure; Z79.4 Long term (current) use of insulin; Z79.899 Other long term (current) drug therapy
CPT/HCPCS: 36000; 36415; 71010; 80053; 82550; 83605; 83735; 83880; 84484; 85025; 85379; 93005; 93041; 96360; 96361; 99285; A9270-GY

== ENCOUNTER 2017-07-02 13:00 | Emergency (ER) | payer MEDICARE ==
[2017-07-02] MEDS ORDERED: CAPTOPRIL 25 MG PO ONE (13:02)
[2017-07-02] MEDS ORDERED: Nitrostat 0.4 MG (ED) SL ONE (13:03)
[2017-07-02] MEDS ORDERED: Ntg 0.2MG/Ml in D5W GLASS*** 250 ML IV ONE (13:05)
[2017-07-02] MEDS ORDERED: Ntg 0.2MG/Ml in D5W GLASS*** 250 ML IV PRN (13:11)
[2017-07-02 13:14] LABS: ABG POTASSIUM 4.4 (3.5-5.1); ARTERIAL BLD GAS O2 SATURATION 90.6 % (95-100); ARTERIAL BLOOD GAS BASE EXCESS -3.9 (-2.0-2.0); ARTERIAL BLOOD GAS PCO2 51 mmHg (35-45); ARTERIAL BLOOD GAS PO2 73 mmHg (75-100); ARTERIAL BLOOD GAS pH 7.27 (7.35-7.45); HCO3- 23.4 (22-28); HGB O2 SAT 90.6 g/dF (94-100); Lactic Acid 1.2 (0.4-2.0)
[2017-07-02 13:14] LABS: BASOPHIL % 0.6 % (0.0-0.4); Basophil (Absolute #) 0.07 (0-0.4); Eosinophil % 6.2 % (0.00-5.0); Eosinophil (Absolute #) 0.79 (0-0.5); Granulocyte Absolute (ANC) 6.33 (1.4-6.9); Granulocytes % 49.8 % (36.0-66.0); Hematocrit 40.7 % (42-50); Hemoglobin 12.8 gm/dl (12.5-18.0); Lymphocytes % 35.4 % (24.0-44.0); Mean Cell Volume 88.5 fl (78-100); Mean Corpuscular Hemoglobin 27.8 pg (26-32); Mean Corpuscular Hgb Concent. 31.4 g/dl (32-36); Mean Platelet Volume 10.8 fl (6-9.5); Monocyte (Absolute #) 1.01 (0.0-1.3); Platelet Count 338 K/mm3 (150-450); Red Cell Distribution Width 16.6 % (11.5-14.0); White Blood Count 12.7 K/mm3 (4.0-10.5)
[2017-07-02 13:15] LABS: ABG SITE RIGHT RADIAL; ALLEN TEST OK? YES
[2017-07-02] MEDS ORDERED: Sodium Chloride 0.9% 1000 ML 1,000 ML IV SCH (13:15)
[2017-07-02 13:27] LABS: INR 0.93 (0.8-3.0)
[2017-07-02 13:29] LABS: PTT 35.2 SECONDS (24.1-36.1)
[2017-07-02 13:31] LABS: ALBUMIN 2.5 g/dL (3.4-5.0); ANION GAP 15.5 MEQ/L (5-15); BILIRUBIN,TOTAL 0.3 mg/dL (0.2-1.0); Calcium 9.2 mg/dL (8.5-10.1); Carbon Dioxide 25.8 mEq/L (21-32); Creatinine 1 4.96 mg/dl (0.55-1.30); MAGNESIUM 2.3 mg/dL (1.8-2.4); Potassium 4.5 mEq/L (3.5-5.1); Total Protein 7.5 gm/dL (6.4-8.2)
--- NOTE | 2017-07-02 13:32 | XRAY ---
Indication: Short of breath. Comparison: April 27, 2017. Portable chest demonstrates interval worsening bilateral mid to lower lung infiltrates/atelectasis with tiny effusions. Heart is not enlarged. Stable right-sided large bore dialysis catheter and left-sided Port-A-Cath. Bony thorax intact.
--- NOTE | 2017-07-02 14:06 | ERPHSYRPT ---
- History of Present Illness Time Seen by Provider: 07/02/17 13:02 Source: patient, family (borther) Exam Limitations: clinical condition (difficulty breathing) Patient Subjective Stated Complaint: pt arrived by car for severe sob that started today, no fever, pt had renal dialysis yesterday. Triage Nursing Assessment: pt arrived per wc responding with short sentences only, no cough, has coarse breath sounds throughout, no edema noted Physician History: CC: trouble breathing Hx: 41 y/o patient of Dr Pro and Hussain with DM and chronic renal failure. He was admitted at [facility] last week. Home Sunday. He has hemodialysis T, , Sat. He was riding to a vein mapping appt with his brother and had sudden shortness of breath 30 minutes SALON COORDINATOR. Severe dyspnea. No chest pain. No fever. No injury. Brother drive him to ER. Severity of Dyspnea-Max: severe Severity of Dyspnea-Current: severe Allergies/Adverse Reactions: Shellfish *RETIRED-09/25/12 [Shellfish] Allergy (Severe, Verified 04/27/17 06:55 ) Hives 12/20/15 patient states he IS allergic to shellfish diphenhydramine HCl [From Benadryl] Allergy (Unknown, Verified 04/27/17 06:55) influenza virus vaccine, specific [Influenza Virus Vacc,Specific] Allergy ( Unknown, Verified 04/27/17 06:55) ketorolac [From Toradol] Allergy (Verified 04/27/17 06:55) shellfish derived Allergy (Verified 04/27/17 06:55) Home Medications: Alprazolam 1 mg [Xanax 1 mg] 1 mg PO BID 01/01/17 [History] Insulin Lispro [Humalog] 0 unit SQ QID 01/01/17 [History] Insulin Detemir [Levemir] 10 units HS 01/11/17 [History] Tapentadol HCl [Nucynta ER] 250 mg PO BID 02/13/17 [History] Hx Tetanus, Diphtheria Vaccination/Date Given: No Hx Influenza Vaccination/Date Given: Yes Hx Pneumococcal Vaccination/Date Given: Yes - Review of Systems Constitutional: No Fever, No Chills Eyes: No Symptoms Ears, Nose, & Throat: No Symptoms Respiratory: Dyspnea Cardiac: No Chest Pain, No Edema Abdominal/Gastrointestinal: No Abdominal Pain, No Vomiting, No Diarrhea Neurological: No Focal Weakness, No Headache, No Parasthesia All Other Systems: Reviewed and Negative - Past Medical History Pertinent Past Medical History: Yes Neurological History: No Pertinent History ENT History: Other Cardiac History: Other Respiratory History: No Pertinent History Endocrine Medical History: Diabetes Type I Musculoskeletal History: No Pertinent History GI Medical History: No Pertinent History History: Renal Disease Psycho-Social History: Anxiety, Depression Male Reproductive Disorders: No Pertinent History Other Medical History: Vision loss from DM, neuropathy, cardiac arrest. one functioning kidney. - Past Surgical History Past Surgical History: Yes Neuro Surgical History: No Pertinent History Cardiac: No Pertinent History Respiratory: No Pertinent History Gastrointestinal: Cholecystectomy Genitourinary: No Pertinent History Musculoskeletal: No Pertinent History Male Surgical History: No Pertinent History Other Surgical History: Left Knee surgery. right hand surgery. port placement - Social History Smoking Status: Unknown if ever smoked How long have you smoked: 15 Exposure to second hand smoke: No Alcohol Use: Socially Drug Use: none Patient Lives Alone: No Significant Family History: diabetes - Nursing Vital Signs Nursing Vital Signs: Initial Vital Signs Temperature 97.0 F 07/02/17 13:00 Pulse Rate 117 H 07/02/17 13:00 Respiratory Rate 30 H 07/02/17 13:00 Blood Pressure 216/133 07/02/17 13:00 O2 Sat by Pulse Oximetry 70 L 07/02/17 13:00 Pain Scale Pain Intensity 0 - Physical Exam General Appearance: alert, other (dry mucous membranes) Eye Exam: PERRL/EOMI Neck Exam: normal inspection, supple Respiratory Exam: respiratory distress (moderately severe), crackles/rales ( thru out), rhonchi Cardiovascular/Chest Exam: normal heart sounds, regular rate/rhythm Abdominal/Gastrointestinal Exam: soft, No tenderness, No distention Extremity Exam: non-tender, normal range of motion Neurologic Exam: alert, cooperative, other (lethargic on arrival, improved mental status with oxygen and ventilation), No motor deficits Skin Exam: warm, dry, No rash SpO2 Interpretation: hypoxic, ABG ordered SpO2: 70 Oxygen Delivery: Room Air - Course Nursing assessment & vital signs reviewed: Yes EKG Interpreted by Me: RATE (112), Sinus Tach, NORMAL AXIS, NORMAL INTERVALS ( QTc 468), Non-specific ST Changes - Radiology Exams cxr X-ray Interpretation: Teleradiologist Report (lower lung A/I with tiny effusion , heart is not enlarged.) Ordered Tests: Active Orders 24 hr Category Date Time Status Biofuels Processing Technician STAT Care 07/02/17 13:03 Active Clean Catch Urine Specimen STAT Care 07/02/17 13:04 Active EKG-ER Only STAT Care 07/02/17 13:02 Active IV Insertion STAT Care 07/02/17 13:02 Active IV Insertion-2nd Peripheral STAT Care 07/02/17 13:03 Active NPO (ED) STAT Care 07/02/17 13:02 Active Pulse Oximetry (ED) STAT Care 07/02/17 13:02 Active CHEST 1 VIEW (PORTABLE) Stat Exams 07/02/17 13:02 Completed ARTERIAL BLOOD GASES Stat Lab 07/02/17 13:02 Completed BLOOD CULTURE Stat Lab 07/02/17 13:03 Received CBC W DIFF Stat Lab 07/02/17 13:09 Completed CMP Stat Lab 07/02/17 13:09 Completed Glucose,Critical Care Urgent Lab 07/02/17 13:03 Completed Lactic Acid Stat Lab 07/02/17 13:02 Completed MAGNESIUM Stat Lab 07/02/17 13:09 Completed PROTIME WITH INR Stat Lab 07/02/17 13:09 Completed PTT Stat Lab 07/02/17 13:09 Completed TROPONIN Q3H Lab 07/02/17 13:09 Completed TROPONIN Q3H Lab 07/02/17 16:15 Ordered TROPONIN Q3H Lab 07/02/17 19:15 Ordered TROPONIN Q3H Lab 07/02/17 22:15 Ordered TROPONIN Q3H Lab 07/03/17 01:15 Ordered UA W/RFX UR CULTURE Stat Lab 07/02/17 13:05 Ordered Urine Triage Profile Stat Lab 07/02/17 13:05 Ordered BiPap/CPAP Assessment STAT RT 07/02/17 13:02 Active Medication Summary Generic Name Dose Route Start Last Admin Trade Name Freq PRN Reason Stop Dose Admin Sodium Chloride 1,000 mls @ 100 mls/hr 07/02/17 13:15 Sodium Chloride 0.9% 1000 Ml IV 08/01/17 13:14 .Q10H NITO Nitroglycerin/Dextrose 250 mls @ 1.5 mls/hr 07/02/17 13:11 Ntg 0.2mg/Ml In D5w Glass IV 08/01/17 13:10 .Q24H PRN CHEST PAIN Protocol 5 MCG/MIN Discontinued Medications Generic Name Dose Route Start Last Admin Trade Name Caridad PRN Reason Stop Dose Admin Captopril 12.5 mg 07/02/17 13:02 Captopril 25 Mg PO 07/02/17 13:03 STAT ONE Nitroglycerin/Dextrose Confirm 07/02/17 13:05 Ntg 0.2mg/Ml In D5w Glass Administered 07/02/17 13:06 Dose 250 mls @ ud IV .STK-MED ONE Nitroglycerin 0.4 mg 07/02/17 13:03 Nitrostat 0.4 Mg (Ed) SL 07/02/17 13:04 STAT ONE Lab/Rad Data: Laboratory Result Diagrams 07/02/17 13:09 07/02/17 13:09 Laboratory Results 07/02/17 07/02/17 07/02/17 Range/Units 13:09 13:09 13:09 WBC (4.0-10.5) K/mm3 RBC (4.1-5.6) M/mm3 Hgb (12.5-18.0) gm/dl Hct (42-50) % MCV (78-100) fl MCH (26-32) pg MCHC (32-36) g/dl RDW (11.5-14.0) % Plt Count (150-450) K/mm3 MPV (6-9.5) fl Gran % (36.0-66.0) % Lymphocytes % (24.0-44.0) % Monocytes % (0.0-12.0) % Eosinophils % (0.00-5.0) % Basophils % (0.0-0.4) % Basophils # (0-0.4) INR 0.93 (0.8-3.0) APTT 35.2 (24.1-36.1) SECONDS Puncture Site pCO2 (35-45) mmHg pO2 (75-100) mmHg Base Excess (-2.0-2.0) O2 Saturation (94-100) g/dF ABG pH (7.35-7.45) ABG HCO3 (22-28) ABG O2 Sat (Measured) (95-100) % Uvaldo Test Hemoglobin Carboxyhemoglobin (0.0-6.9) % THgb Methemoglobin (1.4-1.5) % Potassium 4.5 (3.5-5.1) Glucose 263 H (70-110) Sodium 136 (136-145) mEq/L Chloride 99 (98-107) mEq/L Carbon Dioxide 25.8 (21-32) mEq/L Anion Gap 15.5 H (5-15) MEQ/L BUN 42 H (9-20) mg/dL Creatinine 4.96 H (0.55-1.30) mg/dl Estimated GFR 14 ML/MIN Lactic Acid (0.4-2.0) Calcium 9.2 (8.5-10.1) mg/dL Magnesium 2.3 (1.8-2.4) mg/dL Total Bilirubin 0.30 (0.2-1.0) mg/dL AST 75 H (15-37) U/L ALT 76 (12-78) U/L Alkaline Phosphatase 196 H (46-116) U/L Troponin I < 0.017 (0.000-0.056) ng/ml Serum Total Protein 7.5 (6.4-8.2) gm/dL Albumin 2.5 L (3.4-5.0) g/dL 07/02/17 07/02/17 07/02/17 Range/Units 13:09 13:03 13:02 WBC 12.7 H (4.0-10.5) K/mm3 RBC 4.60 (4.1-5.6) M/mm3 Hgb 12.8 (12.5-18.0) gm/dl Hct 40.7 L (42-50) % MCV 88.5 (78-100) fl MCH 27.8 (26-32) pg MCHC 31.4 L (32-36) g/dl RDW 16.6 H (11.5-14.0) % Plt Count 338 (150-450) K/mm3 MPV 10.8 H (6-9.5) fl Gran % 49.8 (36.0-66.0) % Lymphocytes % 35.4 (24.0-44.0) % Monocytes % 8.0 (0.0-12.0) % Eosinophils % 6.2 H (0.00-5.0) % Basophils % 0.6 (0.0-0.4) % Basophils # 0.07 (0-0.4) INR (0.8-3.0) APTT (24.1-36.1) SECONDS Puncture Site RIGHT RADIAL pCO2 51 H (35-45) mmHg pO2 73 L (75-100) mmHg Base Excess -3.9 L (-2.0-2.0) O2 Saturation 90.6 L (94-100) g/dF ABG pH 7.27 L (7.35-7.45) ABG HCO3 23.4 (22-28) ABG O2 Sat (Measured) 90.6 L (95-100) % Uvaldo Test YES Hemoglobin 13.0 Carboxyhemoglobin 0.0 (0.0-6.9) % THgb Methemoglobin 0.0 L (1.4-1.5) % Potassium 4.4 (3.5-5.1) Glucose 316 H (70-110) Sodium (136-145) mEq/L Chloride (98-107) mEq/L Carbon Dioxide (21-32) mEq/L Anion Gap (5-15) MEQ/L BUN (9-20) mg/dL Creatinine (0.55-1.30) mg/dl Estimated GFR ML/MIN Lactic Acid 1.2 (0.4-2.0) Calcium (8.5-10.1) mg/dL Magnesium (1.8-2.4) mg/dL Total Bilirubin (0.2-1.0) mg/dL AST (15-37) U/L ALT (12-78) U/L Alkaline Phosphatase (46-116) U/L Troponin I (0.000-0.056) ng/ml Serum Total Protein (6.4-8.2) gm/dL Albumin (3.4-5.0) g/dL - Progress Progress Note: 07/02/17 14:05 Pt was lethargic and hypoxic and in distress on arrival. Place don oxygen and bipap. SL NTG given. SL captopril given. He was very hypertensive. BP improved. Resp status improved. Explained condition to brother. Called Dr Nixon who advised transfer to [facility]. Called [facility] one call for acceptance. He is improving. Counseled pt/family regarding: lab results, diagnosis, need for follow-up, rad results - Departure Time of Disposition: 14:06 Departure Disposition: Transfer Clinical Impression: Acute respiratory distress, flash hypertensive pulmonary edema, Chronic renal failure Condition: Serious Critical Care Time: Yes Critical Care Time(excluding separately billable procedures): 30-74 minutes Referrals: AGUSTIN PRO [Primary Care Provider] -
[2017-07-02 14:09] LABS: A-aADO2 303; ABG HEMOGLOBIN 10.3; ABG POTASSIUM 5.1 (3.5-5.1); ARTERIAL BLD GAS O2 SATURATION 99.7 % (95-100); ARTERIAL BLOOD GAS BASE EXCESS -2.3 (-2.0-2.0); ARTERIAL BLOOD GAS FIO2 100 %; ARTERIAL BLOOD GAS PCO2 45 mmHg (35-45); ARTERIAL BLOOD GAS PO2 354 mmHg (75-100); ARTERIAL BLOOD GAS pH 7.33 (7.35-7.45); CARBOXYHEMOGLOBIN 1.8 % THgb (0.0-6.9); HCO3- 23.7 (22-28); Methhemoglobin 0.8 % (1.4-1.5); paO2 pAO1 0.54
[2017-07-02 14:10] LABS: ABG SITE RIGHT RADIAL; ALLEN TEST OK? YES
[2017-07-02 14:34] VITALS: BP 140/89; PULSE 80; O2SAT 100
== END 2017-07-02 15:02 | disposition short-term general hospital (02) ==
LOC: ED 13:00
DX: R06.03 Acute respiratory distress (principal); I27.20 Pulmonary hypertension, unspecified; J81.1 Chronic pulmonary edema; I12.9 Hypertensive chronic kidney disease with stage 1 through stage 4 chronic kidney disease, or unspecified chronic kidney disease; N18.9 Chronic kidney disease, unspecified; E10.8 Type 1 diabetes mellitus with unspecified complications; R09.02 Hypoxemia; R53.83 Other fatigue; G62.9 Polyneuropathy, unspecified
CPT/HCPCS: 36000; 36415; 36600; 71045; 80053; 82375; 82803; 82947; 83605; 83735; 84484; 85025; 85610; 85730; 87040; 93005; 93041; 94002; 94799; 96360; 96361; 96365; 99291; A9270-GY

== ENCOUNTER 2018-01-13 18:48 | Emergency (ER) | payer MEDICARE ==
[2018-01-13 19:20] VITALS: BP 121/81
--- NOTE | 2018-01-13 19:53 | ERPHSYRPT ---
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 Triage Nursing Assessment: pt presents very lethargic; speech slurred; responds to verbal stimuli enough to answers questions and then immediately falls asleep again; pt appears very drowsy while laying in the bed; asked pt to sit up in the bed and back of bed raised to high fowlers to assist pt to wake up enough to finish triage. Physician History: The patient is a 42-year-old male who complains of falling at least 10 times since 6 PM yesterday evening. He states that he is walking just a very short distance in the house and will become dizzy causing him to fall. He takes dialysis 3 times a week. He hurt his back on the last fall. His past medical history is significant for kidney failure, dialysis, diabetes, diabetic neuropathy. Occurred: yesterday Reason for Fall: lightheaded, became dizzy Injuries/Pain Location: back Loss of Consciousness: no loss of consciousness Quality: aching Severity of Pain-Max: mild Severity of Pain-Current: mild Modifying Factors: Improves With: nothing Associated Symptoms (Fall): dizziness Allergies/Adverse Reactions: Shellfish *RETIRED-09/25/12 [Shellfish] Allergy (Severe, Verified 01/13/18 19:20 ) Hives 12/20/15 patient states he IS allergic to shellfish diphenhydramine HCl [From Benadryl] Allergy (Unknown, Verified 01/13/18 19:20) influenza virus vaccine, specific [Influenza Virus Vacc,Specific] Allergy ( Unknown, Verified 01/13/18 19:20) ketorolac [From Toradol] Allergy (Verified 01/13/18 19:20) shellfish derived Allergy (Verified 01/13/18 19:20) Home Medications: Alprazolam 1 mg [Xanax 1 mg] 1 mg PO BID 01/01/17 [History] Insulin Lispro [Humalog] 0 unit SQ QID 01/01/17 [History] Insulin Detemir [Levemir] 12 units SQ HS 01/11/17 [History] Tapentadol HCl [Nucynta ER] 250 mg PO BID 02/13/17 [History] Hydrocodone Bit/Acetaminophen [Hydrocodon-Acetaminophn 10-325] 1 tab PO DAILY [History] Promethazine HCl 25 mg PO PRN 01/13/18 [History] cloNIDine HCl [Clonidine HCl] 0.1 mg PO PRN 01/13/18 [History] Hx Tetanus, Diphtheria Vaccination/Date Given: Yes Hx Influenza Vaccination/Date Given: Yes Hx Pneumococcal Vaccination/Date Given: No Immunizations Up to Date: No - Review of Systems Constitutional: Weakness Eyes: No Symptoms Ears, Nose, & Throat: No Symptoms Respiratory: No Cough, No Dyspnea Cardiac: No Chest Pain, No Edema, No Syncope Abdominal/Gastrointestinal: No Abdominal Pain, No Nausea, No Vomiting, No Diarrhea Genitourinary Symptoms: No Dysuria Musculoskeletal: Fall, Injury Skin: No Rash Neurological: Dizziness Psychological: No Symptoms Endocrine: No Symptoms Hematologic/Lymphatic: No Symptoms Immunological/Allergic: No Symptoms All Other Systems: Reviewed and Negative - Past Medical History Pertinent Past Medical History: Yes Neurological History: Peripheral Neuropathy ENT History: Other Cardiac History: No Pertinent History Respiratory History: No Pertinent History Endocrine Medical History: Diabetes Type II, Other Musculoskeletal History: No Pertinent History GI Medical History: No Pertinent History History: Renal Disease Psycho-Social History: Anxiety, Depression Male Reproductive Disorders: No Pertinent History Other Medical History: Kidney disease - Past Surgical History Past Surgical History: Yes Neuro Surgical History: No Pertinent History Cardiac: No Pertinent History Respiratory: No Pertinent History Gastrointestinal: Cholecystectomy Genitourinary: No Pertinent History Musculoskeletal: No Pertinent History Male Surgical History: No Pertinent History Other Surgical History: Left Knee surgery. right hand surgery. port placement, right upper arm for dialysis catheter, - Social History Smoking Status: Never smoker How long have you smoked: 15 Exposure to second hand smoke: No Alcohol Use: Socially Drug Use: none Patient Lives Alone: No Significant Family History: diabetes - Nursing Vital Signs Nursing Vital Signs: Initial Vital Signs Temperature 98.4 F 01/13/18 19:05 Pulse Rate 102 H 01/13/18 19:05 Respiratory Rate 18 01/13/18 19:05 Blood Pressure 121/81 01/13/18 19:05 O2 Sat by Pulse Oximetry 94 L 01/13/18 19:05 Pain Scale Pain Intensity 8 - Vamsi Coma Score Best Eye Response (Vamsi): (4) open spontaneously Best Verbal Response (Vamsi): (5) oriented Best Motor Response (Vamsi): (6) obeys commands Vamsi Total: 15 - Physical Exam General Appearance: moderate distress, lethargy Head Injury: no evidence of injury Eye Exam: PERRL/EOMI ENT Exam: airway nml Neck Exam: normal inspection, No tenderness Respiratory/Chest Exam: wheezing Cardiovascular Exam: normal heart sounds, regular rate/rhythm Gastrointestinal Exam: soft, No tenderness, No distention, No guarding, No ecchymosis Rectal Exam: not done Back Exam: muscle spasm Extremity Exam: normal inspection, normal range of motion, pelvis stable, pedal edema, No deformities Skin Exam: normal color, warm, dry SpO2 Interpretation: normal SpO2: 94 Oxygen Delivery: Room Air - CT Exams Head CT Interpretation: Negative, Tele-radiologist Report (pler Dr Melendez.) Ordered Tests: Active Orders 24 hr Category Date Time Status Clean Catch Urine Specimen STAT Care 01/13/18 19:53 Active EKG-ER Only STAT Care 01/13/18 19:53 Active IV Insertion STAT Care 01/13/18 19:53 Active CHEST 2 VIEWS (PA AND LAT) Stat Exams 01/13/18 19:53 Taken HEAD WITHOUT CONTRAST [CT] Stat Exams 01/13/18 20:18 Taken LUMBAR LIMITED (2 OR 3 VIEWS) Stat Exams 01/13/18 20:17 Taken BLOOD CULTURE Stat Lab 01/13/18 20:27 Received CBC W DIFF Stat Lab 01/13/18 20:26 Completed CMP Stat Lab 01/13/18 20:26 Completed CULTURE,URINE Stat Lab 01/13/18 20:28 Received LIPASE Stat Lab 01/13/18 20:26 Completed Lactic Acid Stat Lab 01/13/18 20:20 Completed TROPONIN Q3H Lab 01/13/18 20:26 Completed TROPONIN Q3H Lab 01/13/18 23:00 Ordered TROPONIN Q3H Lab 01/14/18 02:00 Ordered TROPONIN Q3H Lab 01/14/18 05:00 Ordered TROPONIN Q3H Lab 01/14/18 08:00 Ordered UA W/ MICROSCOPIC Stat Lab 01/13/18 20:28 Completed Urine Triage Profile Stat Lab 01/13/18 20:28 Completed Medication Summary Discontinued Medications Generic Name Dose Route Start Last Admin Trade Name Caridad PRN Reason Stop Dose Admin Sodium Chloride 500 mls @ 999 mls/hr 01/13/18 19:53 01/13/18 21:12 Sodium Chloride 0.9% 1000 Ml IV 01/13/18 20:23 499 mls/hr .Q31M STA Infusion Sodium Chloride Confirm 01/13/18 20:05 Sodium Chloride 0.9% 1000 Ml Administered 01/13/18 20:06 Dose 1,000 mls @ ud .ROUTE .STK-MED ONE Lab/Rad Data: Laboratory Result Diagrams 01/13/18 20:26 01/13/18 20:26 Laboratory Results 01/13/18 01/13/18 01/13/18 Range/Units 20:28 20:28 20:26 WBC (4.0-10.5) K/mm3 RBC (4.1-5.6) M/mm3 Hgb (12.5-18.0) gm/dl Hct (42-50) % MCV (78-100) fl MCH (26-32) pg MCHC (32-36) g/dl RDW (11.5-14.0) % Plt Count (150-450) K/mm3 MPV (6-9.5) fl Gran % (36.0-66.0) % Eos # (Auto) (0-0.5) Absolute Lymphs (auto) (1.0-4.6) Absolute Monos (auto) (0.0-1.3) Lymphocytes % (24.0-44.0) % Monocytes % (0.0-12.0) % Eosinophils % (0.00-5.0) % Basophils % (0.0-0.4) % Absolute Granulocytes (1.4-6.9) Basophils # (0-0.4) Sodium (137-145) mmol/L Potassium (3.5-5.1) mmol/L Chloride (98-107) mmol/L Carbon Dioxide (22-30) mmol/L Anion Gap (5-15) MEQ/L BUN (9-20) mg/dL Creatinine (0.66-1.25) mg/dL Estimated GFR ML/MIN Glucose (74-106) mg/dL Lactic Acid (0.4-2.0) Calcium (8.4-10.2) mg/dL Total Bilirubin (0.2-1.3) mg/dL AST (17-59) U/L ALT (0-50) U/L Alkaline Phosphatase (38-126) U/L Troponin I 0.016 (0.000-0.034) ng/mL Serum Total Protein (6.3-8.2) g/dL Albumin (3.5-5.0) g/dL Lipase (23-300) U/L Ur Collection Type VOID Urine Color YELLOW (YELLOW) Urine Appearance CLEAR (CLEAR) Urine pH 6.0 (5-6) Ur Specific [place] 1.015 (1.005-1.025) Urine Protein 500 (Negative) Urine Ketones NEGATIVE (NEGATIVE) Urine Blood 250 (0-5) Scooby/ul Urine Nitrite NEGATIVE (NEGATIVE) Urine Bilirubin NEGATIVE (NEGATIVE) Urine Urobilinogen NORMAL (0-1) mg/dL Ur Leukocyte Esterase NEGATIVE (NEGATIVE) Urine Microscopic RBC 10-15 (0-2) /HPF Urine Microscopic WBC 0-2 (0-5) /HPF Ur Epithelial Cells FEW (FEW) /HPF Urine Bacteria FEW (NEGATIVE) /HPF Urine Mucus SLIGHT (NEGATIVE) /HPF Urine Culture Reflexed YES (NO) Urine Glucose 1000 (NEGATIVE) mg/dL Urine Opiates Level POSITIVE (NEGATIVE) Ur Methadone NEGATIVE (NEGATIVE) Urine Barbiturates NEGATIVE (NEGATIVE) Ur Phencyclidine (PCP) NEGATIVE (NEGATIVE) Urine Amphetamine NEGATIVE (NEGATIVE) U Benzodiazepine Level POSITIVE (NEGATIVE) Urine Cocaine NEGATIVE (NEGATIVE) Urine Marijuana (THC) POSITIVE (NEGATIVE) Specimen Received 01/13/18199901/13/18 01/13/18 01/13/18 Range/Units 20:26 20:26 20:20 WBC 6.9 (4.0-10.5) K/mm3 RBC 3.74 L (4.1-5.6) M/mm3 Hgb 11.6 L (12.5-18.0) gm/dl Hct 36.1 L (42-50) % MCV 96.5 (78-100) fl MCH 31.0 (26-32) pg MCHC 32.1 (32-36) g/dl RDW 14.8 H (11.5-14.0) % Plt Count 185 (150-450) K/mm3 MPV 11.9 H (6-9.5) fl Gran % 62.9 (36.0-66.0) % Eos # (Auto) 0.47 (0-0.5) Absolute Lymphs (auto) 1.47 (1.0-4.6) Absolute Monos (auto) 0.57 (0.0-1.3) Lymphocytes % 21.3 L (24.0-44.0) % Monocytes % 8.3 (0.0-12.0) % Eosinophils % 6.8 H (0.00-5.0) % Basophils % 0.7 (0.0-0.4) % Absolute Granulocytes 4.34 (1.4-6.9) Basophils # 0.05 (0-0.4) Sodium 132 L (137-145) mmol/L Potassium 5.3 H (3.5-5.1) mmol/L Chloride 97 L (98-107) mmol/L Carbon Dioxide 22 (22-30) mmol/L Anion Gap 18.4 H (5-15) MEQ/L BUN 56 H (9-20) mg/dL Creatinine 6.29 H (0.66-1.25) mg/dL Estimated GFR 10.3 ML/MIN Glucose 470 H (74-106) mg/dL Lactic Acid 1.1 (0.4-2.0) Calcium 8.3 L (8.4-10.2) mg/dL Total Bilirubin 0.40 (0.2-1.3) mg/dL AST 33 (17-59) U/L ALT 32 (0-50) U/L Alkaline Phosphatase 148 H (38-126) U/L Troponin I (0.000-0.034) ng/mL Serum Total Protein 6.8 (6.3-8.2) g/dL Albumin 3.9 (3.5-5.0) g/dL Lipase 58 (23-300) U/L Ur Collection Type Urine Color (YELLOW) Urine Appearance (CLEAR) Urine pH (5-6) Ur Specific [place] (1.005-1.025) Urine Protein (Negative) Urine Ketones (NEGATIVE) Urine Blood (0-5) Scooby/ul Urine Nitrite (NEGATIVE) Urine Bilirubin (NEGATIVE) Urine Urobilinogen (0-1) mg/dL Ur Leukocyte Esterase (NEGATIVE) Urine Microscopic RBC (0-2) /HPF Urine Microscopic WBC (0-5) /HPF Ur Epithelial Cells (FEW) /HPF Urine Bacteria (NEGATIVE) /HPF Urine Mucus (NEGATIVE) /HPF Urine Culture Reflexed (NO) Urine Glucose (NEGATIVE) mg/dL Urine Opiates Level (NEGATIVE) Ur Methadone (NEGATIVE) Urine Barbiturates (NEGATIVE) Ur Phencyclidine (PCP) (NEGATIVE) Urine Amphetamine (NEGATIVE) U Benzodiazepine Level (NEGATIVE) Urine Cocaine (NEGATIVE) Urine Marijuana (THC) (NEGATIVE) Specimen Received - Progress Progress: improved Progress Note: 01/13/18 21:25 Pt asked to eat. Pt was told not to eat. Pt's family gave pt food. Pt ate. Pt left AMA. - Departure Time of Disposition: 21:26 Departure Disposition: Home, AMA Clinical Impression: Fall Condition: Stable Critical Care Time: No Referrals: AGUSTIN DONG [Primary Care Provider] -
[2018-01-13 19:58] VITALS: PULSE 98
[2018-01-13] MEDS ORDERED: Sodium Chloride 0.9% 1000 ML 1,000 ML ONE (20:05)
[2018-01-13 20:31] LABS: BASOPHIL % 0.7 % (0.0-0.4); Basophil (Absolute #) 0.05 (0-0.4); Eosinophil % 6.8 % (0.00-5.0); Eosinophil (Absolute #) 0.47 (0-0.5); Granulocyte Absolute (ANC) 4.34 (1.4-6.9); Granulocytes % 62.9 % (36.0-66.0); Hematocrit 36.1 % (42-50); Hemoglobin 11.6 gm/dl (12.5-18.0); Lymphocyte (Absolute #) 1.47 (1.0-4.6); Lymphocytes % 21.3 % (24.0-44.0); Mean Cell Volume 96.5 fl (78-100); Mean Corpuscular Hgb Concent. 32.1 g/dl (32-36); Mean Platelet Volume 11.9 fl (6-9.5); Monocyte (Absolute #) 0.57 (0.0-1.3); Monocytes % 8.3 % (0.0-12.0); Platelet Count 185 K/mm3 (150-450); Red Blood Count 3.74 M/mm3 (4.1-5.6); Red Cell Distribution Width 14.8 % (11.5-14.0); White Blood Count 6.9 K/mm3 (4.0-10.5)
[2018-01-13 20:46] LABS: Appearance CLEAR (CLEAR); Bilirubin NEGATIVE (NEGATIVE); Glucose 1000 mg/dL (NEGATIVE); Ketones NEGATIVE (NEGATIVE); Leukocyte Esterase NEGATIVE (NEGATIVE); Nitrite NEGATIVE (NEGATIVE); Protein,Urine Dip 500 (Negative); Specific Gravity 1.015 (1.005-1.025); Urobilinogen NORMAL mg/dL (0-1)
[2018-01-13 20:47] LABS: ALBUMIN 3.9 g/dL (3.5-5.0); ANION GAP 18.4 MEQ/L (5-15); BILIRUBIN,TOTAL 0.4 mg/dL (0.2-1.3); Calcium 8.3 mg/dL (8.4-10.2); Creatinine 1 6.29 mg/dL (0.66-1.25); Potassium 5.3 mmol/L (3.5-5.1); Total Protein 6.8 g/dL (6.3-8.2)
[2018-01-13 20:47] LABS: Bacteria FEW /HPF (NEGATIVE); Blood 250 Ery/ul (0-5); Epithelial Cells FEW /HPF (FEW); Mucus SLIGHT /HPF (NEGATIVE); WBC 0-2 /HPF (0-5)
[2018-01-13 20:48] LABS: Amphetamine,Urine NEGATIVE (NEGATIVE); Barbiturate,Urine NEGATIVE (NEGATIVE); Benzodiazepine,Urine POSITIVE (NEGATIVE); Cocaine,Urine NEGATIVE (NEGATIVE); Methadone,Urine NEGATIVE (NEGATIVE); Opiate,Urine POSITIVE (NEGATIVE); PCP,Urine NEGATIVE (NEGATIVE); THC,Urine POSITIVE (NEGATIVE)
[2018-01-13 21:27] VITALS: O2SAT 94
--- NOTE | 2018-01-14 08:37 | XRAY ---
Indication: Dizziness and multiple falls. No known injury. Multiple contiguous axial images obtained through the head without contrast. Comparison: February 13, 2017. Again age-appropriate global atrophy and minimal periventricular degenerative micro-ischemia. Left ventricles remain prominent. No acute intracranial hemorrhage, abnormal extra-axial fluid collection, or mass effect. Fourth ventricle is midline. Bony calvarium intact. Visualized paranasal sinuses and mastoid air cells are clear. Impression: Stable nonacute senile brain with prominent lateral ventricles. Comment: Preliminary interpretation was made by [facility]. No discrepancy. CTDI 51.47
--- NOTE | 2018-01-14 08:39 | XRAY ---
Indication: Short of breath, dizziness, and falls. Comparison: November 30, 2017. PA/lateral chest demonstrates worsening moderate bibasilar infiltrates/atelectasis/effusions. Upper lung clear. Heart is not enlarged again with left-sided Port-A-Cath. Dialysis catheter has been removed and bony thorax intact.
--- NOTE | 2018-01-14 08:41 | XRAY ---
Indication: Low back pain following fall. Comparison: January 12, 2017. 3 views of the lumbar spine unchanged again demonstrating normal alignment with minimal T12/L1/L3 anterior wedging, scattered vascular calcifications, and right abdomen surgical clips. No new/acute bony, articular, or soft tissue abnormalities.
== END 2018-01-13 21:15 | disposition left against medical advice (07) ==
LOC: ED 18:48
DX: R42 Dizziness and giddiness (principal); R53.1 Weakness; M54.9 Dorsalgia, unspecified; W18.30XA Fall on same level, unspecified, initial encounter; Y92.009 Unspecified place in unspecified non-institutional (private) residence as the place of occurrence of the external cause; Z79.899 Other long term (current) drug therapy; Z79.4 Long term (current) use of insulin
CPT/HCPCS: 36000; 36415; 70450; 71046; 72100; 80053; 80307; 81000; 83605; 83690; 84484; 85025; 87040; 87077; 87086; 93005; 96360; 99284